=== PATIENT | male | born 1970 | race Caucasian/White ===

== ENCOUNTER 2017-01-20 08:58 | Observation (INO) ==
[2017-01-20] MEDS ORDERED: Aspirin 81 MG TAB.CHEW PO ONE (09:11)
[2017-01-20] MEDS ORDERED: Nitroglycerin 0.4 MG TAB.SUBL SL ONE (09:11)
[2017-01-20] MEDS ORDERED: Ondansetron 4 MG/2 ML VIAL IVP ONE (09:16)
[2017-01-20] MEDS: 0.9 % Sodium Chloride 1,000 ML IVC SCH ×2 (09:20→21:30)
[2017-01-20 09:31] LABS: Basophils % 0.8 %; Eosinophils # 0.1 K/mcL (0.0-0.6); Eosinophils % 1.5 %; Hematocrit 45.9 % (37.5-50.1); Hemoglobin 14.9 g/dL (12.9-16.9); Immature Granulocytes % 0.6 % (0-4); Lymphocytes # 1.3 K/mcL (0.6-4.6); Mean Corpuscular HGB Conc 32.5 g/dL (31.6-35.5); Mean Corpuscular Hemoglobin 26.5 pg (28.0-33.3); Mean Corpuscular Volume 81.5 fL (83.0-100.0); Mean Platelet Volume 8.9 fL (9.4-12.4); Monocytes # 0.2 K/mcL (0.0-1.3); Monocytes % 3.9 %; Neutrophils # 3.6 K/mcL (1.6-8.9); Platelet Count 242 K/mcL (140-400); Red Blood Count 5.63 M/mcL (4.19-5.50); Red Cell Distribution Width 13.5 % (11.5-14.5); Segmented Neutrophils % 68.2 %
[2017-01-20 09:37] LABS: Prothrombin Time 10.8 Seconds (9.4-12.1)
[2017-01-20 09:44] LABS: BUN/Creatinine Ratio 16 (6-26); Blood Urea Nitrogen 14 mg/dL (8-26); Calcium 9.6 mg/dL (8.6-10.8); Carbon Dioxide 25 mEq/L (19-29); Chloride 103 mEq/L (98-109); Glucose 373 mg/dL (70-99); Osmolality,Calculated 302 (280-300); Potassium 4.1 mEq/L (3.5-4.5); Sodium 138 mEq/L (136-145); eGFR For African Americans > 60 (> 60); eGFR For Non-African Americans > 60 (> 60)
--- NOTE | 2017-01-20 10:17 | Emergency Department Note ---
Disposition Clinical Impression: Dizziness Chest pain Qualifiers: Chest pain type: unspecified Qualified Code(s): R07.9 - Chest pain, unspecified Disposition: Admitted As Inpatient Condition: Fair Time of Disposition: 10:53 Chest Pain HPI - General Chief Complaint: ED Chest Pain Stated Complaint: CP, Dizzy, Vomit Time Seen by Provider: 01/20/17 09:11 Source: patient, family Mode of arrival: EMS Limitations: no limitations Vital Signs Reviewed: Yes Nursing Notes Reviewed: Yes - History of Present Illness HPI Narrative: 47-year-old male presents with sudden onset chest pain and dizziness, started at 3 AM awoke him up. He has history of hypertension hyperlipidemia and diabetes. He states he has a "50% blockage" in his heart but he did not have a stent this was found several years ago. Patient has a strong family history of heart attack 40s and 50s. His father and brothers. Patient reports 4 out of 10 chest pain was a 7 out of 10. +N and Vomiting all times. Patient denies focal weakness slurred speech or facial droop. He reports his dizziness is worse when he stands up. He reports dizziness feeling like the roomspinning. He denies fever chills shortness of breath, diarrhea, constipation, weight changes, hematochezia, hematemesi. Pt complaint: chest pain Onset (ago): hour(s) Duration: intermittent Onset: during rest Pain Location: substernal, left chest Severity: mild Severity scale (1-10): 4 Quality: heaviness Pain Radiation: none Worsens with: nothing Associated symptoms: Reports: nausea, vomiting, diaphoresis, other Treatments prior to arrival chest pain: none - Related Data Home Medications Medication Instructions Recorded Confirmed Metformin HCl [Glucophage Xr] 750 mg PO BID 08/19/16 01/20/17 Aspirin Enteric Coated [Aspirin EC] 81 mg PO HS 08/23/16 01/20/17 Allergies Allergy/AdvReac Type Severity Reaction Status Date / Time No Known Allergies Allergy Verified 01/20/17 08:59 Review of Systems: 10 Point ROS was performed and negative except as per below or as documented in HPI. Constitutional: Denies: fever Eyes: Denies: eye pain ENT: Denies: nasal congestion CV: +CP Resp: Denies: cough, hemoptysis GI: Denies: abdominal pain, hematochezia Denies: dysuria, hematuria MSK: Denies: back pain, neck pain, extremity pain Skin: Denies: new rashes Neuro: Denies: paresthesias or weakness All systems ED: reviewed and negative except as stated. Review of Systems: As Per HPI Chest Pain PMH - Past Medical History Medical history: Reports: diabetes, hyperlipidemia, other Psychiatric history: Reports: no psych history - Social History Smoking Status: Never smoker Alcohol use: Reports: none Drug use: Reports: none Physical Exam Constitutional: A 47-year-old male appears pale and diaphoretic vital signs stable. Eyes: PERRLA, sclera anicteric Neck: normal inspection, neck is supple Resp: CTA bilaterally, no resp distress CV: RRR, no m/g/r GI: normal inspection, soft, no guarding or rigidity Back: normal inspection, no tenderness to palpation Neuro: A&O3, CNII-XII grossly intact, HERNANDEZ MSK: no gross deformities, normal ROM UE and LE Skin: on limited exam, skin intact with no rashes or lesions - General Limitations: no limitations General appearance: alert, in no apparent distress Course Course Narrative: 47-year-old male with chest pain risk factors including hyperlipidemia and diabetes, concerning given dizziness and chest pain that started at 3 AM. EKG shows no new ischemic changes subtle T-wave inversion in lead 3 seen on previous EKG. Chest pain workup ordered nitroglycerin trial - Reevaluation(s) Reevaluation #1: Patient's chest pain improved after nitroglycerin is still feeling dizziness, the nurse reported that he had dizziness first and then had chest pain, I went and reevaluated the patient his NIH is 0, his hands exam is negative which may be concerning for central lesion, his chest pain resolved with nitroglycerin ideal do still suspect that his symptoms are consistent with angina, however given findings and concerning symptoms of dizziness we will give imaging of the head to rule out stroke. Patient was admitted to the hospitalist Vital Signs Temperature 0 F L 01/20/17 08:59 Pulse Rate 88 01/20/17 08:59 Respiratory Rate 18 01/20/17 08:59 Blood Pressure 156/96 01/20/17 08:59 O2 Sat by Pulse Oximetry 96 01/20/17 08:59 Temperature 0 F L 01/20/17 08:59 Pulse Rate 82 01/20/17 09:55 Respiratory Rate 15 01/20/17 10:38 Blood Pressure 142/95 01/20/17 10:38 O2 Sat by Pulse Oximetry 96 01/20/17 09:55 Oxygen Delivery Oxygen Delivery Room Air Chest Pain - MDM Narrative Medical decision making narrative: 47[facility] for chest pain rule out, CT of head and neck CTA and chest CTA were obtained dizziness, and rule out pulmonary embolus, these were negative, except for for a left internal carotid 55% stenosis, patient's chest pain-free and only complaining of dizziness at the time of hospitalist admission, Dr. Sánchez accepted the patient for further workup - Differential Diagnosis Likely: atypical chest pain, chest pain - Medical Records Medical records reviewed: Yes I reviewed the patient's medical records. - Lab Data Lab results reviewed: Yes I reviewed the patient's lab results. Result diagrams: 01/20/17 09:23 01/20/17 09:23 Lab Results 01/20/17 01/20/17 01/20/17 Range/Units 09:23 09:23 09:23 WBC 5.3 (4.3-11.1) K/mcL RBC 5.63 H (4.19-5.50) M/mcL Hgb 14.9 (12.9-16.9) g/dL Hct 45.9 (37.5-50.1) % MCV 81.5 L (83.0-100.0) fL MCH 26.5 L (28.0-33.3) pg MCHC 32.5 (31.6-35.5) g/dL RDW 13.5 (11.5-14.5) % Plt Count 242 (140-400) K/mcL MPV 8.9 L (9.4-12.4) fL Immature Gran % 0.6 (0-4) % Seg Neutrophils % 68.2 % Lymphocytes % 25.0 % Monocytes % 3.9 % Eosinophils % 1.5 % Basophils % 0.8 % Neutrophils # 3.6 (1.6-8.9) K/mcL Lymphocytes # 1.3 (0.6-4.6) K/mcL Monocytes # 0.2 (0.0-1.3) K/mcL Eosinophils # 0.1 (0.0-0.6) K/mcL Basophils # 0.0 (0.0-0.2) K/mcL PT 10.8 (9.4-12.1) Seconds INR 1.0 APTT 26.0 (26.0-36.0) Seconds Sodium 138 (136-145) mEq/L Potassium 4.1 (3.5-4.5) mEq/L Chloride 103 (98-109) mEq/L Carbon Dioxide 25 (19-29) mEq/L BUN 14 (8-26) mg/dL Creatinine 0.87 (0.72-1.25) mg/dL Est GFR ( Amer) > 60 (> 60) Est GFR (Non-Af Amer) > 60 (> 60) BUN/Creatinine Ratio 16 (6-26) Glucose 373 H (70-99) mg/dL Calculated Osmolality 302 H (280-300) Calcium 9.6 (8.6-10.8) mg/dL Troponin I (0-0.03) ng/mL 01/20/17 Range/Units 09:23 WBC (4.3-11.1) K/mcL RBC (4.19-5.50) M/mcL Hgb (12.9-16.9) g/dL Hct (37.5-50.1) % MCV (83.0-100.0) fL MCH (28.0-33.3) pg MCHC (31.6-35.5) g/dL RDW (11.5-14.5) % Plt Count (140-400) K/mcL MPV (9.4-12.4) fL Immature Gran % (0-4) % Seg Neutrophils % % Lymphocytes % % Monocytes % % Eosinophils % % Basophils % % Neutrophils # (1.6-8.9) K/mcL Lymphocytes # (0.6-4.6) K/mcL Monocytes # (0.0-1.3) K/mcL Eosinophils # (0.0-0.6) K/mcL Basophils # (0.0-0.2) K/mcL PT (9.4-12.1) Seconds INR APTT (26.0-36.0) Seconds Sodium (136-145) mEq/L Potassium (3.5-4.5) mEq/L Chloride (98-109) mEq/L Carbon Dioxide (19-29) mEq/L BUN (8-26) mg/dL Creatinine (0.72-1.25) mg/dL Est GFR ( Amer) (> 60) Est GFR (Non-Af Amer) (> 60) BUN/Creatinine Ratio (6-26) Glucose (70-99) mg/dL Calculated Osmolality (280-300) Calcium (8.6-10.8) mg/dL Troponin I 0.00 (0-0.03) ng/mL - Radiology Data Radiology results reviewed: Yes I reviewed the patient's radiology results. Chest X-Ray 01/20/17 09:11 IMPRESSION: Negative chest x-ray. No evidence of acute cardiopulmonary disease. D/ / Martin Hernandez MD / Martin Hernandez MD Interpreting Provider: Martin Hernandez MD Chest X-Ray 01/20/17 09:11 IMPRESSION: Negative chest x-ray. No evidence of acute cardiopulmonary disease. D/ / Martin Hernandez MD / Martin Hernandez MD Interpreting Provider: Martin Hernandez MD Head CT 01/20/17 10:52 IMPRESSION: No acute intracranial abnormality. D/ / 01/20/2017 13:08:26 Ant Hudson MD / Elaina Posadas Interpreting Provider: Ant Hudson MD Chest CTA 01/20/17 10:57 IMPRESSION: No evidence of pulmonary embolism or acute pulmonary abnormality. D/ / Francia Whalen MD / Francia Whalen MD Interpreting Provider: Francia Whalen MD Neck CTA 01/20/17 10:57 IMPRESSION: 1. Motion degraded examination. 2. Approximately 55% stenosis in the left carotid bulb and proximal internal carotid artery. 3. No hemodynamically significant stenosis in the remainder of the cervical arterial circulation. D/ : / 01/20/2017 13:19:37 Gloria Stiles MD / sheree Interpreting Provider: Gloria Stiles MD - EKG Data EKG attestation: Yes I reviewed and interpreted this EKG. EKG shows normal: sinus rhythm Rate: normal (Ventricular rate 79 AK 158 QRS 95 QTC 4:15 ST changes include T- wave inversions in lead 3 but no reciprocal changes no ST segment elevations or depressions unchanged from previous EKG in 2012.) Rhythm: NSR Murdock/QRS: normal Heart Score - Score History: Highly Suspicious EKG: Non Specific repolarisation Disturbance Age: 45-65 Risk Factors: Equal/Greater than 3 risk factor or history of atherosclerotic disease Troponin: Less than normal limit HEART Score Total: 6 Attestation Statement - Attestation Attestation: I personally interviewed and examined this patient and my medical decision- making was reviewed with the Resident Physician, Dr. Garcia. I agree with the documented findings, disposition and treatment plan as described except to the extent set forth below. Patient is a 47-year-old white male who presents to the emergency department this morning by EMS with complaints of chest pain. Patient states he awoke suddenly at 3 AM with severe chest pain associated with diaphoresis and shortness of breath, nausea vomiting. Patient also states that he was having lightheadedness with positional changes. Patient with a history of hypertension hyperlipidemia, diabetes on insulin, and a strong family history for coronary artery disease. Patient reports that he has had a heart catheter remotely showing a "50% blockage in one vessel" and no recent stress testing. Patient was uncomfortable in appearance we are called to bedside upon patient's arrival to review initial EKG. Patient was placed on health information technician, continuous pulse ox, IV saline while was established and labs were drawn and sent as well as portal chest x-ray obtained. Patient's EKG did not show any acute ischemic changes. Agree with patient's physical exam findings as documented in the chart. Patient labs show mild anemia, acute on chronic renal insufficiency, and negative troponin. Patient's chest x-ray shows no acute process. Decided with patient's numerous risk factors, strong family history that we would admit the patient for further evaluation of this chest pain. On reevaluation patient was having persistent lightheadedness and dizziness although the chest pain resolved with nitroglycerin. Patient was reevaluated by Dr. Garcia had a complete neurologic exam performed with no acute deficits. Due to patient's complaint of dizziness which is new we will also obtain CTA imaging of the head and neck and chest. This was discussed with the hospitalist who accepted the patient for admission and agrees to follow-up on pending imaging results. We did review the films ourselves prior to the patient being physically transferred from the ED and CTA chest was within normal limits patient remained hemodynamically stable at time of discharge to the floor.
[2017-01-20 10:38] LABS: VBG HCO3 26.9 mEq/L (21-27); VBG PH 7.33 pH Units (7.32-7.42)
[2017-01-20] MEDS ORDERED: *HR* Dextrose 50 % in Water (Syg) 50 ML SYRINGE IVP PRN (12:34)
[2017-01-20] MEDS ORDERED: Dextrose Gel 15 GM PO PRN ×2 (12:34)
[2017-01-20] MEDS ORDERED: D5% in Water 1,000 ML IVC PRN (12:34)
[2017-01-20] MEDS: Insulin LISPRO 300 UNITS/3 ML VIAL SQ SCH ×2 (13:03→16:04)
[2017-01-20] MEDS ORDERED: Acetaminophen 325 MG TABLET PO PRN (13:46)
[2017-01-20] MEDS ORDERED: Nitroglycerin 0.4 MG TAB.SUBL SL PRN (14:16)
[2017-01-20] MEDS ORDERED: Naloxone 0.4 MG/ML INJ IVP PRN (15:28)
[2017-01-20] MEDS ORDERED: *HR* Morphine 2 MG/ML SYRINGE IVP PRN (15:28)
--- NOTE | 2017-01-20 15:38 | Internal Med History&Physical ---
<Cheko Pennington - Last Filed: 01/20/17 15:53> Date of Encounter: 01/20/17 Time of Encounter: 15:35 Assessment and Plan (1) Chest pain Current visit: Yes Status: Acute Patient presents with typical chest pain concerning for ACS EKG, trop, CXR, CTA negative for acute abnormalities Will trend troponin x2 and obtain lipid panel Given his positive family history, risk factors, KAREN Score of 4 will consult cardiology for possible cardiac cath in the AM Will make NPO at midnight in preparation for possible procedure Start on ASA, BB, Lipitor Qualifiers: Chest pain type: unspecified Qualified Code(s): R07.9 - Chest pain, unspecified (2) Dizziness Current visit: Yes Status: Acute Unclear etiology at this time, but may be cardiac vs. primary neurologic Head CT was negative upon admission If cardiac cath is negative, he may benefit from neurological consult (3) Non-insulin dependent type 2 diabetes mellitus Current visit: Yes Status: Chronic Last A1c was 10.6% in October, will recheck in AM Glucose was elevated above 300 upon admission Will start on low dose SSI ACHS accuchecks (4) Hypertension Current visit: Yes Status: Chronic Patient does not seem to be taking any hypertensives at home Vital signs stable upon admission Will start on Metoprolol and add Hydralazine PRN if SBP > 170 Qualifiers: Hypertension type: essential hypertension Qualified Code(s): I10 - Essential (primary) hypertension (5) HLD (hyperlipidemia) Current visit: Yes Status: Chronic Obtain lipid panel in the AM Start on high intensity statin with Lipitor 80 mg Qualifiers: Qualified Code(s): E78.5 - Hyperlipidemia, unspecified (6) DVT prophylaxis Current visit: Yes Status: Acute Heparin 5000 units BID Internal Medicine - H&P: HPI Chief complaint: chest pain Admitted From: Home Plans for Post Hospital Care: Home History of present illness: Mr. Ortega is a 47 year old male who presents to the ED with chest pain began at 3 am and woke him up from sleep. Patient states once he woke up he went back to sleep then woke up to urinate. Once the patient was in the bathroom he states he felt dizziness, started sweating and began to vomit. Patient describes the pain as sudden and crushing like an elephant sitting on his chest. States the pain radiated to his shoulder and is a 10/10 in severity. Patient did not try anything to alleviate the pain before coming to the ED. Patient states he had nausea, vomiting, dizziness, sweating but denies shortness of breath. He did have an episode of chest pain roughly 4 years ago but described that as sharp. He had a cath done at that time which showed 50% stenosis, and no intervention was done. Patients drove him to the ED since he was not equipped to drive. Past Med Surg Social Fam HX - Past Medical History Medical history: diabetes, hyperlipidemia, other Psychiatric history: no psych history - Past Surgical History Surgical History: cancer surgery (removed tumor ), vascular surgery (varicose veins) - Social History Smoking Status: Never smoker Smokeless Tobacco Status: No Alcohol use: none Drug use: none - Family History Mother Hx Family Cardiac Disorders: Yes Hx Family Endocrine Disorder: Yes Father Hx Family Cardiac Disorders: Yes Hx Family Endocrine Disorder: Yes Internal Medicine - H&P: Meds Metformin HCl [Glucophage Xr] 750 mg PO BID 08/19/16 [History] Aspirin Enteric Coated [Aspirin EC] 81 mg PO HS 08/23/16 [History] Allergies No Known Allergies Allergy (Verified 01/20/17 08:59) All Systems PM: A 10-system review of systems was performed and is negative for pertinent findings except as documented above in the HPI. - Constitutional Constitutional: no chills, no fever(s), no night sweats - EENT Eyes: blurry vision, no change in vision, no discharge, no pain, no photophobia Ears: no ear discharge, no ear pain, no tinnitus Nose, mouth and throat: no dysphagia, no nasal discharge, no neck pain, no sore throat - Cardiovascular Cardiovascular ROS IM: chest pain, no diaphoresis, no dyspnea, no dyspnea on exertion, no lightheadedness, no palpitations, no syncope - Respiratory Respiratory: no cough, no dyspnea, no wheezing, no excessive phlegm production - Gastrointestinal Gastrointestinal: nausea, vomiting, no abdominal pain, no diarrhea, no hematemesis, no hematochezia, no melena - Musculoskeletal Musculoskeletal ROS IM: no numbness, no tingling - Integumentary Integumentary IM: no rash, no unusual bruising - Neurological Neurological ROS: headache(s), no confusion, no convulsions, no focal weakness, no numbness, no tingling, no tremor(s) - Hematologic/Lymphatic Hematologic/Lymphatic: no easy bruising - Constitutional Vitals: Temp Pulse Resp BP Pulse Ox 0 F L 82 15 142/95 96 01/20/17 08:59 01/20/17 09:55 01/20/17 10:38 01/20/17 10:38 01/20/17 09:55 General appearance: Present: cooperative, pleasant, no acute distress, answers questions appropriately - Head Head exam: Present: atraumatic, normocephalic - Eye Eye exam: Present: PERRL, conjuntiva pink, sclera anicteric - Neck Neck exam general surgery: Present: supple, trachea midline. Absent: lymphadenopathy - Respiratory Respiratory exam: Present: CTAB. Absent: accessory muscle use, rales, rhonchi, wheezes - Cardiovascular Cardiovascular exam: Present: RRR, +S1, +S2. Absent: diastolic murmur, gallop, rubs, systolic murmur - GI/Abdominal GI/Abdominal exam: Present: normal bowel sounds, soft, no peritoneal signs. Absent: distended, tenderness - Extremities Exam Extremities exam: Present: warm, radial pulses palpable and symetrical. Absent : calf tenderness, cyanotic, pedal edema - Neurological Exam Neurological exam: Present: alert, CN II-XII intact, oriented X3, no focal deficits. Absent: pronater drift, facial droop, speech deficit - Skin Skin exam: Present: dry, intact Internal Med - H&P Results - Labs CBC & Chem 7: 01/20/17 09:23 01/20/17 09:23 - ABG Interpretation ABG results: 01/20/17 10:30 VBG pH 7.33 VBG pCO2 51 VBG pO2 98 H VBG HCO3 26.9 - Impressions ITS Impressions Head CT 01/20/17 10:52 IMPRESSION: No acute intracranial abnormality. D/ / 01/20/2017 13:08:26 Ant Hudson MD / Elaina Posadas Interpreting Provider: Ant Hudson MD Chest CTA 01/20/17 10:57 IMPRESSION: No evidence of pulmonary embolism or acute pulmonary abnormality. D/ / Francia Whalen MD / Francia Whalen MD Interpreting Provider: Francia Whalen MD Neck CTA 01/20/17 10:57 IMPRESSION: 1. Motion degraded examination. 2. Approximately 55% stenosis in the left carotid bulb and proximal internal carotid artery. 3. No hemodynamically significant stenosis in the remainder of the cervical arterial circulation. D/ / 01/20/2017 13:19:37 Gloria Stiles MD / sheree Interpreting Provider: Gloria Stiles MD <Kwame Sun - Last Filed: 01/20/17 19:38> Date of Encounter: 01/20/17 Assessment and Plan (1) Chest pain Current visit: Yes Status: Acute Qualifiers: Chest pain type: chest pain due to myocardial ischemia Ischemic chest pain type: unstable angina pectoris Qualified Code(s): I20.0 - Unstable angina (2) Dizziness Current visit: Yes Status: Acute (3) Hypertension Current visit: Yes Status: Chronic Qualifiers: Hypertension type: essential hypertension Qualified Code(s): I10 - Essential (primary) hypertension (4) HLD (hyperlipidemia) Current visit: Yes Status: Chronic Qualifiers: Qualified Code(s): E78.5 - Hyperlipidemia, unspecified (5) Non-insulin dependent type 2 diabetes mellitus Current visit: Yes Status: Chronic Internal Medicine - H&P: HPI History of present illness: Mr. Ortega is a 47 year old male All Systems PM: A 10-system review of systems was performed and is negative for pertinent findings except as documented above in the HPI. - Constitutional Vitals: Temp Pulse Resp BP Pulse Ox 97.6 F 102 17 126/84 94 01/20/17 15:57 01/20/17 15:57 01/20/17 15:57 01/20/17 15:57 01/20/17 15:57 Internal Med - H&P Results - Labs CBC & Chem 7: 01/20/17 09:23 01/20/17 09:23 Labs: Cardiac Enzymes 01/20/17 Range/Units 17:41 Troponin I 0.00 (0-0.03) ng/mL - ABG Interpretation ABG results: 01/20/17 10:30 VBG pH 7.33 VBG pCO2 51 VBG pO2 98 H VBG HCO3 26.9 - Impressions ITS Impressions Head CT 01/20/17 10:52 IMPRESSION: No acute intracranial abnormality. D/ / 01/20/2017 13:08:26 Ant Hudson MD / Elaina Posadas Interpreting Provider: Ant Hudson MD Chest CTA 01/20/17 10:57 IMPRESSION: No evidence of pulmonary embolism or acute pulmonary abnormality. D/ / Francia Whalen MD / Francia Whalen MD Interpreting Provider: Francia Whalen MD Neck CTA 01/20/17 10:57 IMPRESSION: 1. Motion degraded examination. 2. Approximately 55% stenosis in the left carotid bulb and proximal internal carotid artery. 3. No hemodynamically significant stenosis in the remainder of the cervical arterial circulation. D/ / 01/20/2017 13:19:37 Gloria Stiles MD / sheree Interpreting Provider: Gloria Stiles MD - Attending Attestation I examined this patient and my medical decision-making was reviewed with the Resident Physician on 01/20/17. I agree with the documented findings, disposition and treatment plan as described except to the extent set forth below. 47 y/o male with hx of CAD, HLD and DM presented to ED with chest pain. Symptoms awoke him at 3 AM and he was very dizzy as well. Continues to have some dizziness. Still with some L chest discomfort intermittently. Pt has significant coronary risk factors. Exam Alert. Comfortable Mucus membranes moist No bruits Heart reg and no murmur Lungs clear Abd soft and nontender No edema EKG - no acute change I/P 1. Chest pain - high risk for coronary event. Card eval 2. Dizziness - may need neuro eval. Further diagnoses and plan as above.
[2017-01-20] MEDS ORDERED: *HR* Heparin 5,000 UNIT/ML VIAL ONE (17:31)
[2017-01-20] MEDS: *HR* Heparin 5,000 UNIT/ML VIAL SQ SCH (17:33)
--- NOTE | 2017-01-20 20:52 | Electrocardiograph Report ---
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
--- NOTE | 2017-01-20 20:53 | Electrocardiograph Report ---
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
[2017-01-20 20:57] LABS: Bilirubin,Urine Negative (Negative); Blood,Urine Trace (Negative); Clarity,Urine Cloudy (Clear); Color,Urine Yellow (Yellow); Glucose,Urine (UA) >=1000 mg/dL (Normal); Ketones,Urine Trace mg/dL (Negative); Leukocyte Esterase,Urine Small (Negative); Nitrite,Urine Negative (Negative); Protein,Urine 30 mg/dL (Neg-Trace); Specific Gravity,Urine > 1.030 (1.010-1.025); Urobilinogen,Urine Normal (Normal)
[2017-01-20 21:00] LABS: Bacteria,Urine Many per hpf (None-Few); Hyaline Casts,Urine None Seen per lpf (None-Few); Squamous Epithelial Cell,Urine Few per lpf (None-Few); WBC,Urine TNTC per hpf (0-3)
[2017-01-20] MEDS ORDERED: Insulin LISPRO 300 UNITS/3 ML VIAL SQ SCH (21:00)
[2017-01-21 05:34] LABS: Basophils % 0.7 %; Eosinophils # 0.1 K/mcL (0.0-0.6); Eosinophils % 1.8 %; Hematocrit 41.2 % (37.5-50.1); Immature Granulocytes % 0.3 % (0-4); Lymphocytes # 2.1 K/mcL (0.6-4.6); Lymphocytes % 34.6 %; Mean Corpuscular Hemoglobin 26.7 pg (28.0-33.3); Mean Corpuscular Volume 83.2 fL (83.0-100.0); Mean Platelet Volume 8.9 fL (9.4-12.4); Monocytes # 0.3 K/mcL (0.0-1.3); Monocytes % 4.1 %; Neutrophils # 3.6 K/mcL (1.6-8.9); Platelet Count 243 K/mcL (140-400); Red Blood Count 4.95 M/mcL (4.19-5.50); Red Cell Distribution Width 13.7 % (11.5-14.5); Segmented Neutrophils % 58.5 %
[2017-01-21 05:43] LABS: Hemoglobin 13.2 g/dL (12.9-16.9)
[2017-01-21 05:48] LABS: Hemoglobin A1C 10.1 %
[2017-01-21] MEDS: *HR* Heparin 5,000 UNIT/ML VIAL SQ SCH (05:57)
[2017-01-21 05:59] LABS: BUN/Creatinine Ratio 17 (6-26); Blood Urea Nitrogen 15 mg/dL (8-26); Calcium 8.7 mg/dL (8.6-10.8); Carbon Dioxide 26 mEq/L (19-29); Chloride 105 mEq/L (98-109); Chol/HDL Ratio 6.6 (0-4.9); Cholesterol 210 mg/dL (< 200); Glucose 257 mg/dL (70-99); HDL Cholesterol 32 mg/dL (40-59); LDL Cholesterol,Calculated 130 mg/dL (0-99); Osmolality,Calculated 294 (280-300); Potassium 3.8 mEq/L (3.5-4.5); Sodium 137 mEq/L (136-145); Triglycerides 241 mg/dL (< 150); eGFR For African Americans > 60 (> 60); eGFR For Non-African Americans > 60 (> 60)
[2017-01-21] MEDS: 0.9 % Sodium Chloride 1,000 ML IVC SCH (07:57)
[2017-01-21] MEDS: Insulin LISPRO 300 UNITS/3 ML VIAL SQ SCH (07:58)
[2017-01-21] MEDS ORDERED: Aspirin Enteric Coated 81 MG Tablet PO SCH (09:00)
[2017-01-21] MEDS ORDERED: Pantoprazole 40 MG VIAL IVP SCH (09:00)
[2017-01-21] MEDS ORDERED: Aspirin 81 MG TAB.CHEW PO SCH (09:00)
--- NOTE | 2017-01-21 09:02 | Internal Med Progress Note ---
<Juan LuisEdil mello - Last Filed: 01/21/17 13:10> Date of Encounter: 01/21/17 Time of Encounter: 08:59 - Assessment and plan (1) Chest pain Status: Acute Assessment and plan: typical CP EKG, CXR, CTA negative Troponin x3 negative lipid panel elevated Fernando score: 4 prior cath about 4 years ago showed 50% stenosis with no intervention. Plan: appreciate cardiology recs NPO for possible cath or stress test today continue ASA, Statin, BB Qualifiers: Chest pain type: unspecified Qualified Code(s): R07.9 - Chest pain, unspecified (2) Dizziness Status: Acute Assessment and plan: unclear etiology at this time consider cardiac origin, neurologic origin, dehydration CT head negative upon admission (3) Non-insulin dependent type 2 diabetes mellitus Status: Chronic Assessment and plan: Blood sugars high hold metformin medium dose sliding scale insulin. A1C 10.1, same as in October (4) Hypertension Status: Chronic Assessment and plan: no antihypertensive meds at home. continue metoprolol continue Hydralazine PRN blood pressures well controlled at this time. Qualifiers: Hypertension type: essential hypertension Qualified Code(s): I10 - Essential (primary) hypertension (5) HLD (hyperlipidemia) Status: Chronic Assessment and plan: Lipid panel noted to be elevated: Tg 241 cholesterol 210 LDL 130 HDL 32 continue high intensity statin Qualifiers: Hyperlipidemia type: unspecified Qualified Code(s): E78.5 - Hyperlipidemia , unspecified (6) DVT prophylaxis Status: Acute Assessment and plan: heparin SQ - Subjective Interval history: 47 year old paitent evaluated at bedside. He had no acute events overnight and no further episodes of chest pain. patient denies nausea, vomiting, diarrhea, fever, chills, chest pain, and shortness of breath. he denies any further problems today. - Constitutional Vitals: Temp Pulse Resp BP Pulse Ox 97.7 F 80 15 125/81 97 01/21/17 06:50 01/21/17 06:50 01/21/17 06:50 01/21/17 06:50 01/21/17 06:50 General appearance: Present: cooperative, A&O X 3, pleasant, no acute distress, answers questions appropriately - Head Head exam: Present: atraumatic, normocephalic - Neck Neck exam general surgery: Present: supple, trachea midline - Respiratory Respiratory exam: Present: CTAB - Cardiovascular Cardiovascular exam: Present: RRR, +S1, +S2 - GI/Abdominal GI/Abdominal exam: Present: normal bowel sounds, soft. Absent: distended, tenderness - Extremities Exam Extremities exam: Present: radial pulses palpable and symmetrical. Absent: cyanotic, pedal edema - Psychiatric Psychiatric exam: Present: normal affect, normal mood - Skin Skin exam: Present: intact Internal Medicine: Result - Labs CBC & Chem 7: 01/21/17 05:05 01/21/17 05:05 Labs: Short CBC 01/21/17 Range/Units 05:05 WBC 6.2 (4.3-11.1) K/mcL Hgb 13.2 D (12.9-16.9) g/dL Hct 41.2 (37.5-50.1) % Plt Count 243 (140-400) K/mcL Neutrophils # 3.6 (1.6-8.9) K/mcL BMP 01/21/17 05:05 Sodium 137 Potassium 3.8 Chloride 105 Carbon Dioxide 26 BUN 15 Creatinine 0.86 Glucose 257 H Calcium 8.7 Cardiac Enzymes 01/20/17 01/20/17 Range/Units 17:41 23:44 Troponin I 0.00 0.00 (0-0.03) ng/mL Urine 01/20/17 Range/Units 20:40 Urine Color Yellow (Yellow) Urine Clarity Cloudy A (Clear) Urine pH 6.0 (5.0-8.0) pH Units Ur Specific [place] > 1.030 H (1.010-1.025) Urine Protein 30 H (Neg-Trace) mg/dL Urine Glucose (UA) >=1000 H (Normal) mg/dL - ABG Interpretation ABG results: PT/INR, D-dimer PT 10.8 Seconds (9.4-12.1) 01/20/17 09:23 - Impressions Impressions Head CT 01/20/17 10:52 IMPRESSION: No acute intracranial abnormality. D/ / 01/20/2017 13:08:26 Ant Hudson MD / Elaina Posadas Interpreting Provider: Ant Hudson MD Chest CTA 01/20/17 10:57 IMPRESSION: No evidence of pulmonary embolism or acute pulmonary abnormality. D/ / Francia Whalen MD / Francia Whalen MD Interpreting Provider: Francia Whalen MD Neck CTA 01/20/17 10:57 IMPRESSION: 1. Motion degraded examination. 2. Approximately 55% stenosis in the left carotid bulb and proximal internal carotid artery. 3. No hemodynamically significant stenosis in the remainder of the cervical arterial circulation. D/ / 01/20/2017 13:19:37 Gloria Stiles MD / sheree Interpreting Provider: Gloria Stiles MD Consult Discharge Plan - Plan Additional Instructions: Please follow up with environmental officer in 2-3 weeks Please establish with a PCP by calling [phone] and schedule a hospital f/u within 1 week Referrals: Sally Ortega CNP [Primary Care Provider] - 01/24/17 3:00 pm (Please follow up as schedule..) Maria De Jesus Bailey DO [Partnered Physician] - Prescriptions: Nitroglycerin 0.4 mg SL Q5MIN PRN #60 PRN Reason: Chest Pain Insulin Glargine [Lantus] 10 unit SQ BID #100 mls Lancets/Blood Glucose Strips [Fora [id number] Strp-Lnct] 1 each MC DAILY # 30 combo..pkg Metformin HCl [Glucophage] 1,000 mg PO BID #60 tablet Metoprolol [Lopressor] 25 mg PO BID #60 tab [place], Insulin Disp., Safety [Healthy Accents Unifine Pentip] 1 each MC DAILY #60 dis.needle <Vladislav Soria T - Last Filed: 01/21/17 16:21> Date of Encounter: 01/21/17 - Constitutional Vitals: Temp Pulse Resp BP Pulse Ox 98 F 84 14 150/92 97 01/21/17 14:05 01/21/17 14:05 01/21/17 14:05 01/21/17 14:05 01/21/17 14:05 Internal Medicine: Result - Labs CBC & Chem 7: 01/21/17 05:05 01/21/17 05:05 Labs: Short CBC 01/21/17 Range/Units 05:05 WBC 6.2 (4.3-11.1) K/mcL Hgb 13.2 D (12.9-16.9) g/dL Hct 41.2 (37.5-50.1) % Plt Count 243 (140-400) K/mcL Neutrophils # 3.6 (1.6-8.9) K/mcL BMP 01/21/17 05:05 Sodium 137 Potassium 3.8 Chloride 105 Carbon Dioxide 26 BUN 15 Creatinine 0.86 Glucose 257 H Calcium 8.7 Cardiac Enzymes 01/20/17 01/20/17 Range/Units 17:41 23:44 Troponin I 0.00 0.00 (0-0.03) ng/mL Urine 01/20/17 Range/Units 20:40 Urine Color Yellow (Yellow) Urine Clarity Cloudy A (Clear) Urine pH 6.0 (5.0-8.0) pH Units Ur Specific [place] > 1.030 H (1.010-1.025) Urine Protein 30 H (Neg-Trace) mg/dL Urine Glucose (UA) >=1000 H (Normal) mg/dL - ABG Interpretation ABG results: PT/INR, D-dimer PT 10.8 Seconds (9.4-12.1) 01/20/17 09:23 - Impressions Impressions Neck CTA 01/20/17 10:57 IMPRESSION: 1. Motion degraded examination. 2. Approximately 55% stenosis in the left carotid bulb and proximal internal carotid artery. 3. No hemodynamically significant stenosis in the remainder of the cervical arterial circulation. D/ : / 01/20/2017 13:19:37 Gloria Stiles MD / sheree Interpreting Provider: Gloria Stiles MD - Attending Attestation I examined this patient and my medical decision-making was reviewed with the Resident Physician on 01/21/17. I agree with the documented findings, disposition and treatment plan as described except to the extent set forth below. See D/C Summary of same day
[2017-01-21] MEDS ORDERED: Insulin LISPRO 300 UNITS/3 ML VIAL SQ SCH ×2 (09:04)
--- NOTE | 2017-01-21 09:35 | Cardiology Consult Note ---
<Chidi Day - Last Filed: 01/21/17 09:27> Date of Encounter: 01/21/17 Time of Encounter: 09:27 Assessment and Plan (1) Chest pain Status: Acute Troponin negative x 3. EKG with no acute changes. Known history of moderate non-obstuctive CAD seen on [facility] in 2013. Recommend proceeding with stress test and TTE. Currently pain free. Aggressive risk factor modification. Further recommendations to follow. Qualifiers: Chest pain type: chest pain due to myocardial ischemia Ischemic chest pain type: unstable angina pectoris Qualified Code(s): I20.0 - Unstable angina (2) Dizziness Status: Acute Orthostatic vitals are negative. 24 hour telemetry review shows AVg HR 87 bpm. No concerning bradycardia or pauses seen. No VT. Neck CTA shows moderate carotid artery disease, likely not the cause of dizziness. Continue to monitor. Check TTE. (3) CAD (coronary artery disease) Status: Acute H/o of moderate non-obstructive CAD on [facility] in 2013 at [facility]: 40-50% stenosis in the mLAD, 60% stenosis dLAD, 50% stenosis mCx artery, 30% stenosis 1st OM, 40-50 % stenosis mRCA. EF 63%. Asa, statin, and bb recommended. Poor cardiology f/u since that time. Will schedule out-pt f/u. Aggressive risk factor modification. Qualifiers: Coronary Disease-Associated Artery/Lesion type: craig artery [place] vs. transplanted heart: craig heart Associated angina: angina presence unspecified Qualified Code(s): I25.10 - Atherosclerotic heart disease of craig coronary artery without angina pectoris Discussion w patient/family: The assessment and plan as outlined above was discussed with the patient and/or family members who expressed understanding and agreement. All questions were answered. Thank you for involving us in the care of your patient. Please call with any questions. History of Present Illness Consult date: 01/21/17 Requesting physician: Kwame Sun Consult reason: Chest pain Chief complaint: Chest discomfort. dizziness History of present illness: Mr. Ortega is a 47 year old male with a history of non-obstructive CAD, DM type II, and HLD who presented after waking up with chest heaviness the night before last. He states, "felt like there was an elephant sitting on my chest." He states when he stood up he immediately vomited. He walked to the bathroom and felt very dizzy. C/o sweating profusely. He presented to the ER and was given two SL NTG with relief of his chest discomfort. No chest pain since that time. Troponin found to be negative x 3. EKG showed SR with no concerning changes. Cardiology consulted for further evaluation. He reports LHC five years ago at [facility] that showed a 50% stenosis. No intervention completed at that time. He does not follow with cardiology. Past Med Surg Social Fam HX - Past Medical History Medical history: coronary artery disease, diabetes, hyperlipidemia, other Psychiatric history: no psych history - Past Surgical History Surgical History: cancer surgery (removed tumor ), vascular surgery (varicose veins) - Social History Smoking Status: Never smoker Smokeless Tobacco Status: No Alcohol use: none Drug use: none - Family History Mother Living Status: (Secondary to ID, 48 yr old) Hx Family Cardiac Disorders: Yes Hx Family Endocrine Disorder: Yes Father Hx Family Cardiac Disorders: Yes (ID at age 48) Hx Family Endocrine Disorder: Yes Medications and Allergies Aspirin Enteric Coated [Aspirin EC] 81 mg PO HS 08/23/16 [History] Atorvastatin [Lipitor] 40 mg PO HS 01/21/17 [History] Insulin Glargine [Lantus] 10 unit SQ BID #100 mls 01/21/17 [Rx] Lancets/Blood Glucose Strips [Fora [id number] [facility]] 1 each MC DAILY # 30 combo..pkg 01/21/17 [Rx] Metformin HCl [Glucophage] 1,000 mg PO BID #60 tablet 01/21/17 [Rx] Metoprolol [Lopressor] 25 mg PO BID #60 tab 01/21/17 [Rx] [place], Insulin Disp., Safety [Healthy Accents Unifine Pentip] 1 each MC DAILY #60 dis.needle 01/21/17 [Rx] Nitroglycerin 0.4 mg SL Q5MIN PRN #60 01/21/17 [Rx] Allergies No Known Allergies Allergy (Verified 01/20/17 08:59) All Systems Review: A 10-system review of systems was performed and is negative for pertinent findings except as documented above in the HPI. Physical Examination Vital Signs, Last 4 Hours Temp Pulse Resp BP Pulse Ox 01/21/17 06:50 97.7 F 80 15 125/81 97 General: Conversant, No Apparent Distress HEENT: Atraumatic, Normocephaly, Mucus Membranes Moist Neck: No JVD, Normal carotid pulses Cardiac: Reg Rate and Rhythm, Normal S1 and S2, No Murmur Lungs: Normal Breath Sounds, No Wheeze, Rales, Rhonchi Neuro: Alert and responsive, No focal deficits noted Abdomen: Soft, Non-Tender Skin: No rashes noted on visualized skin Musculoskeletal: No Chest Wall Tenderness Extremities: No Clubbing, No Cyanosis, No Edema, Normal Pulses Results 01/21/17 05:05 01/21/17 05:05 Lab Results 01/20/17 01/20/17 01/21/17 17:41 23:44 05:05 WBC 6.2 Hgb 13.2 D Hct 41.2 Plt Count 243 Sodium Potassium Chloride Carbon Dioxide BUN Creatinine Glucose Calcium Troponin I 0.00 0.00 01/21/17 05:05 WBC Hgb Hct Plt Count Sodium 137 Potassium 3.8 Chloride 105 Carbon Dioxide 26 BUN 15 Creatinine 0.86 Glucose 257 H Calcium 8.7 Troponin I Chest X-Ray 01/20/17 09:11 IMPRESSION: Negative chest x-ray. No evidence of acute cardiopulmonary disease. D/ / Martin Hernandez MD / Martin Hernandez MD Interpreting Provider: Martin Hernandez MD Head CT 01/20/17 10:52 IMPRESSION: No acute intracranial abnormality. D/ / 01/20/2017 13:08:26 Ant Hudson MD / Elaina Posadas Interpreting Provider: Ant Hudson MD Chest CTA 01/20/17 10:57 IMPRESSION: No evidence of pulmonary embolism or acute pulmonary abnormality. D/ / Francia Whalen MD / Francia Whalen MD Interpreting Provider: Francia Whalen MD Neck CTA 01/20/17 10:57 IMPRESSION: 1. Motion degraded examination. 2. Approximately 55% stenosis in the left carotid bulb and proximal internal carotid artery. 3. No hemodynamically significant stenosis in the remainder of the cervical arterial circulation. D/ / 01/20/2017 13:19:37 Gloria Stiles MD / sheree Interpreting Provider: Gloria Stiles MD - Imaging and Cardiology Echo: pending - EKG Interpretation EKG results cardiology: personally reviewed (NSR) Consult Discharge Plan - Plan Additional Instructions: Please follow up with animal care service worker in 2-3 weeks Please establish with a PCP by calling [phone] and schedule a hospital f/u within 1 week Referrals: Sally Ortega, [employer] SUPERINTENDENT [Primary Care Provider] - 01/24/17 3:00 pm (Please follow up as schedule..) Maria De Jesus Bailey DO [Partnered Physician] - Prescriptions: Nitroglycerin 0.4 mg SL Q5MIN PRN #60 PRN Reason: Chest Pain Insulin Glargine [Lantus] 10 unit SQ BID #100 mls Lancets/Blood Glucose Strips [Fora [id number] Strp-Lnct] 1 each MC DAILY # 30 combo..pkg Metformin HCl [Glucophage] 1,000 mg PO BID #60 tablet Metoprolol [Lopressor] 25 mg PO BID #60 tab [place], Insulin Disp., Safety [Healthy Accents Unifine Pentip] 1 each MC DAILY #60 dis.needle <Maria De Jesus Bailey - Last Filed: 01/21/17 16:53> Date of Encounter: 01/21/17 Assessment and Plan Discussion w patient/family: The assessment and plan as outlined above was discussed with the patient and/or family members who expressed understanding and agreement. All questions were answered. Thank you for involving us in the care of your patient. Please call with any questions. History of Present Illness History of present illness: Mr. Ortega is a 47 year old male All Systems Review: A 10-system review of systems was performed and is negative for pertinent findings except as documented above in the HPI. Physical Examination Vital Signs, Last 4 Hours Temp Pulse Resp BP Pulse Ox 01/21/17 14:05 98 F 84 14 150/92 97 Results 01/21/17 05:05 01/21/17 05:05 Lab Results 01/20/17 01/20/17 01/21/17 17:41 23:44 05:05 WBC 6.2 Hgb 13.2 D Hct 41.2 Plt Count 243 Sodium Potassium Chloride Carbon Dioxide BUN Creatinine Glucose Calcium Troponin I 0.00 0.00 01/21/17 05:05 WBC Hgb Hct Plt Count Sodium 137 Potassium 3.8 Chloride 105 Carbon Dioxide 26 BUN 15 Creatinine 0.86 Glucose 257 H Calcium 8.7 Troponin I - Attending Attestation I examined this patient and my medical decision-making was reviewed with the Resident Physician. I agree with the documented findings, disposition and treatment plan. Mr. Ortega presents with atypical chest pain, had negative troponins and no ECG changes. He's also undergone stress testing that was negative for ischemia and had an echo that was unremarkable. He's been chest pain free. No further testing is warranted from a cardiac perspective. We discussed healthy lifestyle habits and I encouraged a plant based diet. He will remain on aspirin and statin. We will sign off. Recommend outpatient follow up.
[2017-01-21] MEDS ORDERED: Acetaminophen 325 MG TABLET PO PRN (11:16)
[2017-01-21] MEDS ORDERED: Regadenoson 0.4 MG/5 ML SYRINGE IVP ONE (12:09)
--- NOTE | 2017-01-21 12:34 | Electrocardiograph Report ---
[place] [address] Test Date: 2017-01-20 Pat Name: Stefano Ortega Department: 112 Room: 2A25 Gender: Testboard Operator: [facility] : 1970 Requested By: Win Garcia Order Number: [id number] Reading MD: Suzanna Morin Measurements Intervals [place] Rate: 96 P: 45 MI: 163 QRS: -24 QRSD: 98 T: 5 QT: 354 QTc: 408 Interpretive Statements SINUS RHYTHM MINIMAL VOLTAGE CRITERIA FOR LVH, CONSIDER NORMAL VARIANT INFERIOR MYOCARDIAL INFARCTION, PROBABLY OLD Electronically Signed On 01-21-2017 12:33:12 EDT by Suzanna Morin
--- NOTE | 2017-01-21 13:54 | Nuclear Medicine Stress Report ---
Regadenoson Nuclear Stress Name: Stefano Ortega Date of Study: 01/21/2017 Date: 1970 Ht: 71.0 in Medical Record#: [id number] Age: 47 Wt: 210.0 lb Gender: Male Order #: [id number] Location: [facility] Room: [facility] Supervising Provider: Polo Pham CNP Reading Physician: Alex Pa MD, [facility] Ordering Physician: Kwame Sun DO Primary Care Physician: Sally Ortega CNP Stress Technologist: Allen Garcia CRT Edi Architect: Mani Garza Indications: Chest Pain Impression: Gated LVEF = 58%. Perfusion imaging was negative for ischemia or infarct. History: Diabetes Hypercholesteremia Stress Test Summary: Stress Test Type: Pharmacologic Regadenoson 0.4mg/5ml given IV Baseline Information: Initial Heart Rate: 88 Blood Pressure: 122/74 Stress Information: Test Terminated Due to (primary): As per protocol Maximum Blood Pressure: 124/84 Maximum Heart Rate: 109 Percent Maximum Heart Rate Achieved: 62 Double Product: [id number] Symptoms: No chest symptoms Nuclear Summary: SPECT myocardial perfusion imaging using Tc99m Sestamibi given intravenously was performed at rest and following cardiac stress testing. The resting images were obtained following initial dose of 11 mCi. Following stress an additional dose of 31.3 mCi was given at peak exercise or 30 seconds post regadenoson infusion. Findings: Stress Note * Resting ECG demonstrated sinus rhythm, poor r-wave progression. * No baseline arrhythmias were noted. * Patient had no chest pain during stress. * No arrhythmias were noted during stress. * No significant ECG changes with regadenoson. Hemodynamic responses * Normal hemodynamic responses to pharmacologic stress. Study Quality * Study quality is average. Gated EF % * Gated LVEF = 58%. Left Ventricle * The left ventricle is not dilated. * Normal Segmental Perfusion in rest. * Normal segmental perfusion in stress. TID * No evidence of transient ischemic dilatation. Updated by Alex Pa MD, [facility] on 01/21/2017 1:47:10 PM electronically signed on 01/21/2017 1:47:32 PM with status of Final
--- NOTE | 2017-01-21 14:33 | Event Note ---
Date of Encounter: 01/21/17 Time of Encounter: 14:30 - Cardiology Event Note Stress test was negative for ischemia or infarct. TTE shows preserved LV function. No further cardiac work-up indicated. Patient will be evaluated by Dr. Bailey prior to being cleared for discharge. Out-pt f/u will be made by [facility] in 2-3 weeks.
--- NOTE | 2017-01-21 15:06 | Discharge Summary ---
<Vladislav Soria T - Last Filed: 01/21/17 16:55> Date of Encounter: 01/21/17 - Discharge Medications Prescriptions: Nitroglycerin 0.4 mg SL Q5MIN PRN #60 PRN Reason: Chest Pain Insulin Glargine [Lantus] 10 unit SQ BID #100 mls Lancets/Blood Glucose Strips [Fora [id number] Strp-Lnct] 1 each MC DAILY # 30 combo..pkg Metformin HCl [Glucophage] 1,000 mg PO BID #60 tablet Metoprolol [Lopressor] 25 mg PO BID #60 tab [place], Insulin Disp., Safety [Healthy Accents Unifine Pentip] 1 each MC DAILY #60 dis.needle Home Medications: Aspirin Enteric Coated [Aspirin EC] 81 mg PO HS 08/23/16 [History] Atorvastatin [Lipitor] 40 mg PO HS 01/21/17 [History] Insulin Glargine [Lantus] 10 unit SQ BID #100 mls 01/21/17 [Rx] Lancets/Blood Glucose Strips [Fora [id number] Strp-Lnct] 1 each MC DAILY # 30 combo..pkg 01/21/17 [Rx] Metformin HCl [Glucophage] 1,000 mg PO BID #60 tablet 01/21/17 [Rx] Metoprolol [Lopressor] 25 mg PO BID #60 tab 01/21/17 [Rx] [place], Insulin Disp., Safety [Healthy Accents Unifine Pentip] 1 each MC DAILY #60 dis.needle 01/21/17 [Rx] Nitroglycerin 0.4 mg SL Q5MIN PRN #60 01/21/17 [Rx] Allergies/Adverse Reactions: Allergies No Known Allergies Allergy (Verified 01/20/17 08:59) Procedures/tests Complete & Pending: Procedures Performed prior 72 hours Category Date Time Status CT angio chest [CT] Stat Cat Scan 01/20/17 10:[address] head/brain wo con [CT] Stat Cat Scan 01/20/17 10:52 Completed CTA Neck [CT angio neck] [CT] Stat Cat Scan 01/20/17 10:57 Completed NM nicolasa perf SPECT multi [NM] Routine Exams 01/21/17 09:18 Taken EKG [ECG 12 lead ECG] [ECG] Stat Y 01/20/17 14:44 Completed EV echocardiogram Routine Y 01/21/17 11:27 Completed SP pharm nuclear stress Routine Y 01/21/17 09:18 Completed Date of admission: 01/20/17 10:10 Primary care physician: Sally Ortega CNP Consults: 01/20/17 15:14 Consult to Cardiology [CONS] Routine Comment: Consulting Provider: Cardiology Ana M Reason for Consult: chest pain Time Notified: 14:25 Call Completed: Yes - Patient Status Disposition: Home, Self-Care Condition: Fair - Discharge Instructions Follow Up With: Sally Ortega CNP [Primary Care Provider] - 01/24/17 3:00 pm (Please follow up as schedule..) Maria De Jesus Bailey DO [Partnered Physician] - Forms: ED Satisfaction Letter Additional Instructions: Please follow up with librarian special [facility] in 2-3 weeks Please establish with a PCP by calling [phone] and schedule a hospital f/u within 1 week Hospital course: Mr. Ortega is a 47 year old male - Time Spent with Patient Total time spent providing and/or coordinating discharge services: - Constitutional Vitals: Temp Pulse Resp BP Pulse Ox 98 F 84 14 150/92 97 01/21/17 14:05 01/21/17 14:05 01/21/17 14:05 01/21/17 14:05 01/21/17 14:05 - Attending Attestation I examined this patient and my medical decision-making was reviewed with the Resident Physician on 01/21/17. I agree with the documented findings, disposition and treatment plan as described except to the extent set forth below. Seen and examined with spouse at bedside Denies new complains 47 M with Uncontrolled DM, HTN HLD He is on metformin only at home HIs work up for dizziness is unremarkable so far At time of review, he was awaiting cardiology evaluation for chest pain, his EKG was unremarkable and troponin was negative His physical exam is unremarkable His ECHO and Stress test do not show ischemia, he however has diastolic dysfunction I educated the patient extensively on compliance with medications and diet, we have started him on basal insulin, which he needs to monitor with FS log and follow up with PCP Rest of details as in resident physician's documentation <Cheko Pennington - Last Filed: 01/21/17 18:14> Date of Encounter: 01/21/17 Time of Encounter: 14:58 - Discharge Diagnosis (1) Chest pain Priority: Primary Status: Acute Qualifiers: Chest pain type: unspecified Qualified Code(s): R07.9 - Chest pain, unspecified (2) Dizziness Priority: Secondary Status: Acute (3) Non-insulin dependent type 2 diabetes mellitus Priority: Secondary Status: Chronic (4) Hypertension Priority: Secondary Status: Chronic Qualifiers: Hypertension type: essential hypertension Qualified Code(s): I10 - Essential (primary) hypertension (5) HLD (hyperlipidemia) Priority: Secondary Status: Chronic Qualifiers: Hyperlipidemia type: unspecified Qualified Code(s): E78.5 - Hyperlipidemia , unspecified (6) DVT prophylaxis Priority: Secondary Status: Acute Procedures/tests Complete & Pending: Procedures Performed prior 72 hours Category Date Time Status CT angio chest [CT] Stat Cat Scan 01/20/17 10:[address] head/brain wo con [CT] Stat Cat Scan 01/20/17 10:52 Completed CTA Neck [CT angio neck] [CT] Stat Cat Scan 01/20/17 10:57 Completed NM nicolasa perf SPECT multi [NM] Routine Exams 01/21/17 09:18 Taken EKG [ECG 12 lead ECG] [ECG] Stat Y 01/20/17 14:44 Completed EV echocardiogram Routine Y 01/21/17 11:27 Completed SP pharm nuclear stress Routine Y 01/21/17 09:18 Completed Date of admission: 01/20/17 10:10 Primary care physician: Sally Ortega CNP Consults: 01/20/17 15:14 Consult to Cardiology [CONS] Routine Comment: Consulting Provider: Cardiology Ana M Reason for Consult: chest pain Time Notified: 14:25 Call Completed: Yes Discharging clinician: Cheko Pennington Anticipated date of discharge: 01/21/17 - Patient Status Functional capacity at discharge: independent ambulation Overall status at discharge: patient is progressing back to baseline - Diet and Activity Activity: resume usual activities as tolerated Diet: low fat, low cholesterol Interval History: Pt seen and examined. He reports no complaints this afternoon and is very eager to go home after he had a stress test and echo done. Hospital course: Mr. Ortega is a 47 year old male who presents to the ED with chest pain began at 3 am and woke him up from sleep. Patient states once he woke up he went back to sleep then woke up to urinate. Once the patient was in the bathroom he states he felt dizziness, started sweating and began to vomit. Patient describes the pain as sudden and crushing like an elephant sitting on his chest. States the pain radiated to his shoulder and is a 10/10 in severity. He did have an episode of chest pain roughly 4 years ago but described that as sharp. He had a cath done at that time which showed 50% stenosis, and no intervention was done. Troponins and EKG were negative during admission and cardiology was consulted and recommended exercise stress test and echo. Results were unremarkable and he will be going home on an insulin regimen and increased Metformin as his sugars were elevated during his stay. He will continuing his Lipitor, ASA and has been prescribed SL Nitro and Metoprolol. - Time Spent with Patient Total time spent providing and/or coordinating discharge services: Greater than 30 minutes - Constitutional Vitals: Temp Pulse Resp BP Pulse Ox 97.7 F 80 15 125/81 97 01/21/17 06:50 01/21/17 06:50 01/21/17 06:50 01/21/17 06:50 01/21/17 06:50 General appearance: Present: cooperative, A&O X 3, pleasant, no acute distress, answers questions appropriately - Head Head exam: Present: atraumatic, normocephalic - Eye Eye exam: Present: PERRL, conjuntiva pink, sclera anicteric Pupils: Present: PERRL - Neck Neck exam general surgery: Present: supple, trachea midline. Absent: lymphadenopathy - Respiratory Respiratory exam: Present: CTAB. Absent: accessory muscle use, rales, rhonchi, wheezes - Cardiovascular Cardiovascular exam: Present: RRR, +S1, +S2. Absent: diastolic murmur, gallop, rubs, systolic murmur - GI/Abdominal GI/Abdominal exam: Present: normal bowel sounds, soft, no peritoneal signs. Absent: distended, tenderness - Extremities Exam Extremities exam: Present: warm, radial pulses palpable and symmetrical. Absent : calf tenderness, cyanotic, pedal edema - Neurological Exam Neurological exam: Present: alert, no focal deficits. Absent: pronater drift, facial droop, speech deficit - Skin Skin exam: Present: dry, intact
[2017-01-21 15:23] VITALS: BP 150/92
[2017-01-21] MEDS ORDERED: Insulin DETEMIR 100 UNIT/ML X5UNITS SQ SCH (21:00)
--- NOTE | 2017-01-23 17:58 | Event Note ---
Date of Encounter: 01/24/17 Time of Encounter: 17:56 01/23/17 1800 Patient with urince culture growing klebsiella He had no urinary symptoms during admission I have sent prescription for omnicef to his pharmacy and called him on his cell phone, leaving a message to garbage pick up man antibiotics I also left him a voice mail with the current hospital cell phone assigned to me , to call me back should he have any questions 01/24/17 [id number] -Patient called on his cell phone number, another voice message left to garbage pick up man antibiotics, and call with questions
== END 2017-01-21 16:15 | disposition home or self-care (01) ==
LOC: EMEROO 08:58 → 2ANU 08:58
PROVIDERS: ADMIT Internal Medicine Endocrinology, Diabetes & Metabolism; ATTEND Internal Medicine

== ENCOUNTER 2017-06-24 10:06 | Inpatient (IN) ==
[2017-06-24] MEDS ORDERED: Aspirin 81 MG TAB.CHEW PO ONE (10:09)
--- NOTE | 2017-06-24 10:22 | Emergency Department Note ---
Disposition Clinical Impression: Left arm weakness Chest pain Qualifiers: Chest pain type: unspecified Qualified Code(s): R07.9 - Chest pain, unspecified Disposition: Admitted As Inpatient Condition: Fair Time of Disposition: 11:11 Neuro HPI - General Chief Complaint: ED Chest Pain Stated Complaint: chest pain, L arm numbness Time Seen by Provider: 06/24/17 10:09 Source: patient Mode of arrival: ambulatory Limitations: no limitations Nursing Notes Reviewed: Yes Vital Signs Reviewed: Yes - History of Present Illness HPI Narrative: 47-year-old male who woke up this morning 7 and 8:00 and stated that he was having chest pain but also noted some weakness and inability use his left hand. States he didn't sleep abnormally. He states that he woke up around between 7 and 8 and his symptoms were there. On further clarification he states that the weakness was there upon awakening so last known well is unknown. Symptom Onset Unknown: Yes Timing confirmed by: family member Location: left arm History of same: No Severity: moderate Quality: weakness Symptoms Improving: No Improves with: none Worsens with: none Context: sudden onset Associated symptoms: Reports: chest pain Treatments Prior to Arrival: none - Related Data Home Medications: Home Medications Medication Instructions Recorded Confirmed Aspirin Enteric Coated [Aspirin EC] 81 mg PO HS 08/23/16 06/24/17 Glimepiride [Amaryl] 2 mg PO DAILY 06/24/17 06/24/17 Previous Rx's Medication Instructions Recorded Metformin HCl [Glucophage] 1,000 mg PO BID #60 tablet 01/21/17 Nitroglycerin 0.4 mg SL Q5MIN PRN #60 01/21/17 Allergies/Adverse Reactions: Allergies Allergy/AdvReac Type Severity Reaction Status Date / Time No Known Allergies Allergy Verified 01/20/17 08:59 Constitutional: Denies: fever, chills, weakness, weight change Eyes: Denies: eye pain, eye discharge, vision change ENT ED: Denies: ear pain, throat pain, dental pain, hearing loss, epistaxis, congestion, dysphagia Cardiovascular: Reports: chest pain. Denies: palpitations, dyspnea on exertion , edema, syncope Respiratory: Denies: cough, dyspnea, wheezes, hemoptysis, stridor Gastrointestinal: Denies: abdominal pain, nausea, vomiting, diarrhea, constipation, hematemesis, melena, hematochezia Genitourinary: Denies: urgency, dysuria, frequency, hematuria Musculoskeletal: Denies: back pain, neck pain, arthralgia, myalgia Integumentary: Denies: rash, abrasion, lesions Neurological: Reports: weakness (Weakness left hand and left wrist), numbness ( Tant). Denies: headache, paresthesias, confusion, abnormal gait, vertigo Psychiatric: Denies: anxiety, depression, suicidal thoughts, homicidal thoughts , auditory hallucinations, visual hallucinations Endocrine: Denies: fatigue Hematological/Lymphatic: Denies: easy bleeding, easy bruising Allergic/Immunologic: Denies: facial swelling, urticaria Past Medical History - Past Medical History Medical history: Reports: coronary artery disease, diabetes, hyperlipidemia, other Surgical history: Reports: cancer surgery (removed tumor ), vascular surgery ( varicose veins) Psychiatric history: Reports: no psych history - Social History Smoking Status: Never smoker Smokeless Tobacco Status: No Alcohol use: Reports: none Drug use: Reports: none Physical Exam - General Limitations: no limitations General appearance: alert, in no apparent distress - Head Head exam: atraumatic, normocephalic, normal inspection - Eye Eye exam: Present: normal appearance, PERRL, EOMI - ENT ENT exam: normal exam, normal oropharynx, mucous membranes moist - Neck Neck exam: Present: normal inspection, full ROM, trachea midline - Chest Chest inspection: Present: normal inspection, symmetric chest wall rise - Respiratory Respiratory exam: Present: normal lung sounds bilaterally - Cardiovascular Cardiovascular exam: Present: regular rate, normal rhythm, normal heart sounds - Abdominal Exam Abdominal exam: Present: soft, Non-Tender. Absent: tenderness, distention, guarding, rebound, rigidity - Extremities Exam Extremities exam: Present: normal inspection, full ROM. Absent: tenderness, pedal edema - Expanded Lower Extremity Exam Neurovascular/Tendon exam: Present: motor deficit (He has weakness of tension at the wrist and intrinsic hand weakness.) Gait: observed and normal - Back Exam Back exam: Present: normal inspection, full ROM. Absent: tenderness - Neurological Exam Neurological exam: Present: alert, oriented X3, normal gait, motor sensory deficit (Motor weakness at the wrist with extension and also some intrinsic hand weakness) - Psychiatric Psychiatric exam: Present: normal affect, normal mood - Skin Skin exam: Present: warm, dry, intact, normal color Course - Reevaluation(s) Reevaluation #1: 47-year-old male who comes in complaining of chest pain and also some left hand weakness. Workup included a CT of the head which was negative and his initial cardiac workup is negative. Patient will be admitted for further evaluation and treatment. Time: 11:12 Reevaluation #2: Patient's IV infiltrated that according to radiology they started another IV they recommend ice to the area. Time: 15:27 - Consultations Consultation #1: Discussed with Dr. Schneider neurology. Patient has unknown onset of symptoms is not a TPA candidate. He will see the patient in consult. Time: 10:27 Consultation #2: Discussed with , admit. Time: 11:11 Vital Signs Temperature 98.1 F 06/24/17 10:09 Pulse Rate 127 06/24/17 10:09 Respiratory Rate 19 06/24/17 10:09 Blood Pressure 139/91 06/24/17 10:09 O2 Sat by Pulse Oximetry 95 06/24/17 10:09 Temperature 98.1 F 06/24/17 10:09 Pulse Rate 118 06/24/17 13:06 Respiratory Rate 14 06/24/17 13:06 Blood Pressure 127/81 06/24/17 13:06 O2 Sat by Pulse Oximetry 94 06/24/17 13:06 Oxygen Delivery Oxygen Delivery Room Air Neuro Symptoms/Deficit - Lab Data Lab results reviewed: Yes I reviewed the patient's lab results. Result diagrams: 06/24/17 10:23 06/24/17 10:23 Lab Results 06/24/17 06/24/17 06/24/17 Range/Units 10:18 10:23 10:23 WBC 18.2 H (4.3-11.1) K/mcL RBC 5.31 (4.19-5.50) M/mcL Hgb 13.3 (12.9-16.9) g/dL Hct 41.6 (37.5-50.1) % MCV 78.3 L (83.0-100.0) fL MCH 25.0 L (28.0-33.3) pg MCHC 32.0 (31.6-35.5) g/dL RDW 15.0 H (11.5-14.5) % Plt Count 305 (140-400) K/mcL MPV 8.7 L (9.4-12.4) fL Immature Gran % 0.7 (0-4) % Seg Neutrophils % 92.2 % Lymphocytes % 4.3 % Monocytes % 2.6 % Eosinophils % 0.0 % Basophils % 0.2 % Neutrophils # 16.8 H (1.6-8.9) K/mcL Lymphocytes # 0.8 (0.6-4.6) K/mcL Monocytes # 0.5 (0.0-1.3) K/mcL Eosinophils # 0.0 (0.0-0.6) K/mcL Basophils # 0.0 (0.0-0.2) K/mcL PT 15.3 H (9.4-12.1) Seconds INR 1.4 APTT 32.1 (26.0-36.0) Seconds D-Dimer 1179 H (0-500) ng/mLFEU Sodium (136-145) mEq/L Potassium (3.5-5.1) mEq/L Chloride (98-107) mEq/L Carbon Dioxide (23-29) mEq/L BUN (6-20) mg/dL Creatinine (0.70-1.30) mg/dL Est GFR ( Amer) (> 60) Est GFR (Non-Af Amer) (> 60) BUN/Creatinine Ratio (6-26) Glucose (70-105) mg/dL POC Glucose 295 H (58-89) Calculated Osmolality (280-300) Calcium (8.6-10.3) mg/dL Troponin I (< 0.04) ng/mL Urine Color (Yellow) Urine Clarity (Clear) Urine pH (5.0-8.0) pH Units Ur Specific [place] (1.010-1.025) Urine Protein (Neg-Trace) mg/dL Urine Glucose (UA) (Normal) mg/dL Urine Ketones (Negative) mg/dL Urine Blood (Negative) Urine Nitrite (Negative) Urine Bilirubin (Negative) Urine Urobilinogen (Normal) mg/dL Ur Leukocyte Esterase (Negative) Urine Microscopic RBC (0-3) per hpf Urine Microscopic WBC (0-3) per hpf Ur Squamous Epith Cells (None-Few) per lpf Urine Bacteria (None-Few) per hpf Hyaline Casts (None-Few) per lpf Granular Casts (None Seen) per lpf Ur Culture Indicated? (NO) 0106/24/17 06/24/17 Range/Units 10:23 10:23 11:23 WBC (4.3-11.1) K/mcL RBC (4.19-5.50) M/mcL Hgb (12.9-16.9) g/dL Hct (37.5-50.1) % MCV (83.0-100.0) fL MCH (28.0-33.3) pg MCHC (31.6-35.5) g/dL RDW (11.5-14.5) % Plt Count (140-400) K/mcL MPV (9.4-12.4) fL Immature Gran % (0-4) % Seg Neutrophils % % Lymphocytes % % Monocytes % % Eosinophils % % Basophils % % Neutrophils # (1.6-8.9) K/mcL Lymphocytes # (0.6-4.6) K/mcL Monocytes # (0.0-1.3) K/mcL Eosinophils # (0.0-0.6) K/mcL Basophils # (0.0-0.2) K/mcL PT (9.4-12.1) Seconds INR APTT (26.0-36.0) Seconds D-Dimer (0-500) ng/mLFEU Sodium 130 L (136-145) mEq/L Potassium 3.8 (3.5-5.1) mEq/L Chloride 93 L (98-107) mEq/L Carbon Dioxide 23 (23-29) mEq/L BUN 21 H (6-20) mg/dL Creatinine 1.07 (0.70-1.30) mg/dL Est GFR ( Amer) > 60 (> 60) Est GFR (Non-Af Amer) > 60 (> 60) BUN/Creatinine Ratio 20 (6-26) Glucose 276 H (70-105) mg/dL POC Glucose (58-89) Calculated Osmolality 283 (280-300) Calcium 9.4 (8.6-10.3) mg/dL Troponin I 0.03 (< 0.04) ng/mL Urine Color Dark Yellow (Yellow) Urine Clarity Turbid A (Clear) Urine pH 5.5 (5.0-8.0) pH Units Ur Specific [place] 1.024 (1.010-1.025) Urine Protein 100 H (Neg-Trace) mg/dL Urine Glucose (UA) >=1000 H (Normal) mg/dL Urine Ketones 40 H (Negative) mg/dL Urine Blood Large H (Negative) Urine Nitrite Negative (Negative) Urine Bilirubin Small H (Negative) Urine Urobilinogen Normal (Normal) mg/dL Ur Leukocyte Esterase Small H (Negative) Urine Microscopic RBC 3-5 H (0-3) per hpf Urine Microscopic WBC TNTC H (0-3) per hpf Ur Squamous Epith Cells Many H (None-Few) per lpf Urine Bacteria Many H (None-Few) per hpf Hyaline Casts Few (None-Few) per lpf Granular Casts Few H (None Seen) per lpf Ur Culture Indicated? NO. (NO) 06/24/17 Range/Units 13:51 WBC (4.3-11.1) K/mcL RBC (4.19-5.50) M/mcL Hgb (12.9-16.9) g/dL Hct (37.5-50.1) % MCV (83.0-100.0) fL MCH (28.0-33.3) pg MCHC (31.6-35.5) g/dL RDW (11.5-14.5) % Plt Count (140-400) K/mcL MPV (9.4-12.4) fL Immature Gran % (0-4) % Seg Neutrophils % % Lymphocytes % % Monocytes % % Eosinophils % % Basophils % % Neutrophils # (1.6-8.9) K/mcL Lymphocytes # (0.6-4.6) K/mcL Monocytes # (0.0-1.3) K/mcL Eosinophils # (0.0-0.6) K/mcL Basophils # (0.0-0.2) K/mcL PT (9.4-12.1) Seconds INR APTT (26.0-36.0) Seconds D-Dimer (0-500) ng/mLFEU Sodium (136-145) mEq/L Potassium (3.5-5.1) mEq/L Chloride (98-107) mEq/L Carbon Dioxide (23-29) mEq/L BUN (6-20) mg/dL Creatinine (0.70-1.30) mg/dL Est GFR ( Amer) (> 60) Est GFR (Non-Af Amer) (> 60) BUN/Creatinine Ratio (6-26) Glucose (70-105) mg/dL POC Glucose (58-89) Calculated Osmolality (280-300) Calcium (8.6-10.3) mg/dL Troponin I < 0.03 (< 0.04) ng/mL Urine Color (Yellow) Urine Clarity (Clear) Urine pH (5.0-8.0) pH Units Ur Specific [place] (1.010-1.025) Urine Protein (Neg-Trace) mg/dL Urine Glucose (UA) (Normal) mg/dL Urine Ketones (Negative) mg/dL Urine Blood (Negative) Urine Nitrite (Negative) Urine Bilirubin (Negative) Urine Urobilinogen (Normal) mg/dL Ur Leukocyte Esterase (Negative) Urine Microscopic RBC (0-3) per hpf Urine Microscopic WBC (0-3) per hpf Ur Squamous Epith Cells (None-Few) per lpf Urine Bacteria (None-Few) per hpf Hyaline Casts (None-Few) per lpf Granular Casts (None Seen) per lpf Ur Culture Indicated? (NO) - Radiology Data Radiology results reviewed: Yes I reviewed the patient's radiology results. Chest X-Ray 06/24/17 10:09 IMPRESSION: No evidence for acute cardiopulmonary process. D/ / Brad Millan MD / Brad Millan MD Interpreting Provider: Brad Millan MD Head CT 06/24/17 10:15 IMPRESSION: Stable appearance of the brain with no acute intracranial abnormality. D/ / Sandeep Zavala MD / Sandeep Zavala MD Interpreting Provider: Sandeep Zavala MD - EKG Data EKG attestation: Yes I reviewed and interpreted this EKG. EKG shows normal: sinus rhythm Rate: tachycardia Rhythm: NSR Interpretation: no acute changes NIH Stroke Scale - Level of Consciousness LOC: Alert - LOC Questions LOC Questions: Answers both correctly - LOC Commands LOC Commands: Performs both correctly - Best Gaze Best Gaze: Normal - Visual Visual: No visual loss - Facial Palsy Facial Palsy: Normal - Motor Arms Motor Arm-Left: Drift, does NOT hit bed Motor Arm-Right: No drift for 10 seconds - Motor Legs Motor Leg-Left: No drift for 5 seconds Motor Leg-Right: No drift for 5 seconds - Limb Ataxia Limb Ataxia: Present in ONE limb - Sensory Sensory: Normal - Best Language Best Language: No aphasia - Dysarthria Dysarthria: Normal - Extinction and Inattention Extinction and Inattention: Normal - NIHSS Total Score NIHSS Total Score: 2 TPA Checklist - LKW: 3-4.5 hrs Add. Warnings/Precautions Patient/family understanding: The patient/family members have been counseled and understood the risk, benefit , and alternatives of treatment.
[2017-06-24 10:32] LABS: Basophils % 0.2 %; Hematocrit 41.6 % (37.5-50.1); Hemoglobin 13.3 g/dL (12.9-16.9); Immature Granulocytes % 0.7 % (0-4); Lymphocytes # 0.8 K/mcL (0.6-4.6); Lymphocytes % 4.3 %; Mean Corpuscular Volume 78.3 fL (83.0-100.0); Mean Platelet Volume 8.7 fL (9.4-12.4); Monocytes # 0.5 K/mcL (0.0-1.3); Monocytes % 2.6 %; Neutrophils # 16.8 K/mcL (1.6-8.9); Platelet Count 305 K/mcL (140-400); Red Blood Count 5.31 M/mcL (4.19-5.50); Segmented Neutrophils % 92.2 %
[2017-06-24 10:37] LABS: INR 1.4; Prothrombin Time 15.3 Seconds (9.4-12.1)
[2017-06-24 10:39] LABS: Activated Partial Thrombo Time 32.1 Seconds (26.0-36.0)
[2017-06-24 10:55] LABS: BUN/Creatinine Ratio 20 (6-26); Blood Urea Nitrogen 21 mg/dL (6-20); Calcium 9.4 mg/dL (8.6-10.3); Carbon Dioxide 23 mEq/L (23-29); Chloride 93 mEq/L (98-107); Glucose 276 mg/dL (70-105); Osmolality,Calculated 283 (280-300); Potassium 3.8 mEq/L (3.5-5.1); Sodium 130 mEq/L (136-145); eGFR For African Americans > 60 (> 60); eGFR For Non-African Americans > 60 (> 60)
[2017-06-24 11:31] LABS: Bilirubin,Urine Small (Negative); Blood,Urine Large (Negative); Clarity,Urine Turbid (Clear); Color,Urine Dark Yellow (Yellow); Glucose,Urine (UA) >=1000 mg/dL (Normal); Ketones,Urine 40 mg/dL (Negative); Leukocyte Esterase,Urine Small (Negative); Nitrite,Urine Negative (Negative); PH,Urine 5.5 pH Units (5.0-8.0); Protein,Urine 100 mg/dL (Neg-Trace); Specific Gravity,Urine 1.024 (1.010-1.025); Urobilinogen,Urine Normal (Normal)
[2017-06-24 11:33] LABS: Bacteria,Urine Many per hpf (None-Few); Squamous Epithelial Cell,Urine Many per lpf (None-Few); WBC,Urine TNTC per hpf (0-3)
[2017-06-24 11:51] LABS: Granular Casts,Urine Few per lpf (None Seen); Hyaline Casts,Urine Few per lpf (None-Few)
[2017-06-24] MEDS ORDERED: Mag Hydrox/Al Hydrox/Simeth 30 ML UDC PO PRN (13:38)
[2017-06-24] MEDS ORDERED: *HR* Morphine 2 MG/ML SYRINGE IVP PRN (13:38)
[2017-06-24] MEDS ORDERED: Naloxone 0.4 MG/ML INJ IVP PRN (13:38)
[2017-06-24] MEDS ORDERED: Nitroglycerin 0.4 MG TAB.SUBL SL PRN (13:42)
--- NOTE | 2017-06-24 13:49 | Internal Med History&Physical ---
Date of Encounter: 06/29/17 Time of Encounter: 13:46 Assessment and Plan (1) Chest pain Status: Acute 47/male Admitted with persistent chest pain. KAERN score: 3. History of diabetes, hypertension, dyslipidemia, persistent chest pain. Patient noted to have a elevated white blood cell count of 18,000. Plan: Admit as inpatient: Patient has a chest pain along with that there is a left arm weakness which is a new onset. Aspirin/beta konstantin/Lipitor Cycle troponin. Echocardiogram. Resume home medication. Dictated troponins negative, if echocardiogram is normal: Consider stress test. If the stress test is abnormal then please call cardiology for possible catheterization. If abnormal troponin/abnormal echocardiogram: Please call cardiology. Qualifiers: Chest pain type: unspecified Qualified Code(s): R07.9 - Chest pain, unspecified (2) Left arm weakness Status: Acute Patient woke up with a left arm weakness. CT head: Negative. Plan: We will get CT of the neck. Noted that neurology is already on the board. We will follow the recommendation from neurology. (3) Hypertension Status: Chronic The blood pressure of this patient is within acceptable limits Qualifiers: Hypertension type: essential hypertension Qualified Code(s): I10 - Essential (primary) hypertension (4) HLD (hyperlipidemia) Status: Chronic Stable Qualifiers: Hyperlipidemia type: unspecified Qualified Code(s): E78.5 - Hyperlipidemia , unspecified (5) CAD (coronary artery disease) Status: Acute Stable Qualifiers: Coronary Disease-Associated Artery/Lesion type: [place] artery [place] vs. transplanted heart: [place] heart Associated angina: angina presence unspecified Qualified Code(s): I25.10 - Atherosclerotic heart disease of [place] coronary artery without angina pectoris (6) Diabetes mellitus Status: Acute We will follow the subcutaneous insulin order set and we will follow the guidelines from the etc. accordingly. Qualifiers: Diabetes mellitus type: type 2 Diabetes mellitus complication status: with unspecified complications Diabetes mellitus clinical instructor insulin use: unspecified residential insulin use status Qualified Code(s): E11.8 - Type 2 diabetes mellitus with unspecified complications (7) DVT prophylaxis Status: Acute scd Medical decision making: This patient is a moderate to severe risk of worsening in spite of being on appropriate medical occasions due to the underlying comorbid status. Internal Medicine - H&P: HPI Chief complaint: Chest pain with left arm weakness Admitted From: Emergency Dept Plans for Post Hospital Care: Home History of present illness: PCP: Nurse practitioner Sally Ortega. Brief past medical history: Diabetes type 2, hypertension, hyperlipidemia, coronary artery disease, History of present medical illness: As per patient, he woke up this morning and noted that patient has excruciating chest pain which is retrosternal in nature, nonradiating, localized, associated with the movement, getting worse with the walking and lifting heavy material and relieved by rest and nitroglycerin. Patient also complains of he has a left sided wrist as well as part of the arm drawn this morning. Patient denies any abnormal activity yesterday in terms of drinking alcohol/consumed drugs. 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 Patient's was at bedside. She confirmed the findings. Both patient and his family were concerned regarding this new onset of weakness of the left arm and there was reason they came to emergency room. Workup in the emergency room: Patient was evaluated in the emergency room. Patient underwent basic labs checkup. Patient noted to have an elevated d- dimer and he is getting CT scan for the same. Reason for admission: Chest pain to rule out ACS, acute onset of left arm weakness which needs further evaluation. Family history: Noncontributory Past Med Surg Social Fam HX - Past Medical History Medical history: coronary artery disease, diabetes, hyperlipidemia, other Psychiatric history: no psych history - Past Surgical History Surgical History: cancer surgery (removed tumor ), vascular surgery (varicose veins) - Social History Smoking Status: Never smoker Smokeless Tobacco Status: No Alcohol use: none Drug use: none - Family History Mother Living Status: Hx Family Cardiac Disorders: Yes Hx Family Endocrine Disorder: Yes Father Hx Family Cardiac Disorders: Yes ([place] at age 48) Hx Family Endocrine Disorder: Yes Internal Medicine - H&P: Meds Aspirin Enteric Coated [Aspirin EC] 81 mg PO HS 08/23/16 [History] Metformin HCl [Glucophage] 1,000 mg PO BID #60 tablet 01/21/17 [Rx] Nitroglycerin 0.4 mg SL Q5MIN PRN #60 01/21/17 [Rx] Glimepiride [Amaryl] 2 mg PO DAILY 06/24/17 [History] levoFLOXacin [Levaquin] 750 mg PO DAILY 5 Days #5 tablet 06/26/17 [Rx] 3 Allergy/AdvReac Type Severity Reaction Status Date / Time No Known Allergies Allergy Verified 01/20/17 08:59 All Systems PM: A 10-system review of systems was performed and is negative for pertinent findings except as documented above in the HPI. - Constitutional Constitutional: no chills, no fever(s), no night sweats - EENT Eyes: no change in vision, no discharge, no pain, no photophobia Ears: no ear discharge, no ear pain, no tinnitus Nose, mouth and throat: no dysphagia, no nasal discharge, no neck pain, no sore throat - Cardiovascular Cardiovascular ROS IM: no chest pain, no diaphoresis, no dyspnea, no lightheadedness, no palpitations, no syncope - Respiratory Respiratory: no cough, no dyspnea, no wheezing, no excessive phlegm production - Gastrointestinal Gastrointestinal: no abdominal pain, no diarrhea, no hematemesis, no hematochezia, no melena, no nausea, no vomiting - Musculoskeletal Musculoskeletal ROS IM: no numbness, no tingling - Integumentary Integumentary IM: no rash, no unusual bruising - Neurological Neurological ROS: no confusion, no convulsions, no focal weakness, no numbness, no tingling, no tremor(s) - Hematologic/Lymphatic Hematologic/Lymphatic: no easy bruising - Constitutional Vitals: Temp Pulse Resp BP Pulse Ox 98.1 F 118 14 127/81 94 06/24/17 10:09 06/24/17 13:06 06/24/17 13:06 06/24/17 13:06 06/24/17 13:06 - Head Head exam: Present: atraumatic, normocephalic - Eye Eye exam: Present: PERRL, conjuntiva pink, sclera anicteric Pupils: Present: PERRL - Neck Neck exam general surgery: Present: supple, trachea midline. Absent: lymphadenopathy - Respiratory Respiratory exam: Present: CTAB. Absent: accessory muscle use, rales, rhonchi, wheezes - Cardiovascular Cardiovascular exam: Present: RRR, +S1, +S2. Absent: diastolic murmur, gallop, rubs, systolic murmur - GI/Abdominal GI/Abdominal exam: Present: normal bowel sounds, soft, no peritoneal signs. Absent: distended, tenderness - Extremities Exam Extremities exam: Present: warm, radial pulses palpable and symmetrical. Absent : calf tenderness, cyanotic, pedal edema - Neurological Exam Neurological exam: Present: CN II-XII intact, oriented X3, no focal deficits. Absent: pronater drift, facial droop, speech deficit - Skin Skin exam: Present: dry, intact Internal Med - H&P Results - Labs CBC & Chem 7: 06/26/17 04:32 06/26/17 04:32 Labs: Short CBC 06/24/17 Range/Units 10:23 WBC 18.2 H (4.3-11.1) K/mcL Hgb 13.3 (12.9-16.9) g/dL Hct 41.6 (37.5-50.1) % Plt Count 305 (140-400) K/mcL Neutrophils # 16.8 H (1.6-8.9) K/mcL BMP 06/24/17 10:23 Sodium 130 L Potassium 3.8 Chloride 93 L Carbon Dioxide 23 BUN 21 H Creatinine 1.07 Glucose 276 H Calcium 9.4 Cardiac Enzymes 06/24/17 Range/Units 10:23 Troponin I 0.03 (< 0.04) ng/mL Urine 06/24/17 Range/Units 11:23 Urine Color Dark Yellow (Yellow) Urine Clarity Turbid A (Clear) Urine pH 5.5 (5.0-8.0) pH Units Ur Specific [place] 1.024 (1.010-1.025) Urine Protein 100 H (Neg-Trace) mg/dL Urine Glucose (UA) >=1000 H (Normal) mg/dL - Impressions ITS Impressions Chest X-Ray 06/24/17 10:09 IMPRESSION: No evidence for acute cardiopulmonary process. D/ / Brad Millan MD / Brad Millan MD Interpreting Provider: Brad Millan MD Head CT 06/24/17 10:15 IMPRESSION: Stable appearance of the brain with no acute intracranial abnormality. D/ / Sandeep Zavala MD / Sandeep Zavala MD Interpreting Provider: Sandeep Zavala MD
--- NOTE | 2017-06-24 14:07 | Neurology - Consult Note ---
<Edil Wilson - Last Filed: 06/24/17 15:23> Date of Encounter: 06/24/17 Time of Encounter: 14:01 Assessment and Plan (1) Left hand weakness Current Visit: Yes Status: Acute patient states that he has weakness of his left hand that started since he woke up this morning, and this has never happened before. He is not able to flex, extend his left wrist or use his left fingers due to weakness. CT head: no acute process Etiology likely secondary to radial nerve palsy. However, stroke must be ruled out as patient does have risk factors present. Plan: echo pending CTA neck pending agree with PT/OT History of Present Illness Chief complaint: left hand weakness HPI: Mr. Ortega is a 47 year old male with PMHx of CAD, DM, HLD. patient arrived to the ED today with chief complaint of chest pain and left hand weakness that started earlier this morning when he woke up. He states that nothing like this ever happened to him before. He stated that his left hand was limp and he could not use it at all. He could not extend his wrist, or use his fingers. He denies any numbness or tingling in this area. He denies any recent trauma or drug use. 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 He denies slurred speech, facial drooping, gait abnormality , memory problems, shortness of breath, fever, bowel or bladder incontinence. He admits to some chills but denies fever. Past Med Surg Social Fam HX - Past Medical History Medical history: coronary artery disease, diabetes, hyperlipidemia, other Psychiatric history: no psych history - Past Surgical History Surgical History: cancer surgery (removed tumor ), vascular surgery (varicose veins) - Social History Smoking Status: Never smoker Smokeless Tobacco Status: No Alcohol use: none Drug use: none - Family History Mother Living Status: Hx Family Cardiac Disorders: Yes Hx Family Endocrine Disorder: Yes Father Hx Family Cardiac Disorders: Yes ([place] at age 48) Hx Family Endocrine Disorder: Yes Medications and Allergies Aspirin Enteric Coated [Aspirin EC] 81 mg PO HS 08/23/16 [History] Metformin HCl [Glucophage] 1,000 mg PO BID #60 tablet 01/21/17 [Rx] Nitroglycerin 0.4 mg SL Q5MIN PRN #60 01/21/17 [Rx] Glimepiride [Amaryl] 2 mg PO DAILY 06/24/17 [History] 3 Allergy/AdvReac Type Severity Reaction Status Date / Time No Known Allergies Allergy Verified 01/20/17 08:59 All Systems: A 10-system review of systems was performed and is negative for pertinent findings except as documented above in the HPI. - Constitutional Constitutional ROS IM: as per HPI Physical Examination - Vital Signs Vital Signs: Initial Vital Signs Temp Pulse Resp BP Pulse Ox 98.1 F 127 19 139/91 95 06/24/17 10:06/24/17 10:06/24/17 10:06/24/17 10:06/24/17 10:09 - Constitutional General appearance: comfortable - Neurologic Sensorimotor examination: intact Motor examination - right side: 5/5: deltoids, biceps, triceps, wrist flexion, wrist extension, bi application developer, hip flexors, quadriceps, plantarflexion Motor examination - left side: 1/5: wrist flexion, wrist extension, bi application developer, 5/5: deltoids, biceps, triceps, hip flexors, tibialis Anterior, plantarflexion Detailed sensory examination: intact Reflex and gait examination: intact Mental Status Examination: awake, alert, oriented to person, oriented to place, oriented to time, follows commands appropriately, answers questions appropriately, no aphasia Cranial nerve examination: PERRL, EOMI, visual franco intact, sensory to face intact Results - Laboratory Findings CBC and BMP: 06/24/17 10:23 06/24/17 10:23 Abnormal lab findings: Abnormal lab results WBC 18.2 K/mcL (4.3-11.1) H 06/24/17 10:23 MCV 78.3 fL (83.0-100.0) L 06/24/17 10:23 MCH 25.0 pg (28.0-33.3) L 06/24/17 10:23 RDW 15.0 % (11.5-14.5) H 06/24/17 10:23 MPV 8.7 fL (9.4-12.4) L 06/24/17 10:23 Neutrophils # 16.8 K/mcL (1.6-8.9) H 06/24/17 10:23 PT 15.3 Seconds (9.4-12.1) H 06/24/17 10:23 D-Dimer 1179 ng/mLFEU (0-500) H 06/24/17 10:23 Sodium 130 mEq/L (136-145) L 06/24/17 10:23 Chloride 93 mEq/L (98-107) L 06/24/17 10:23 BUN 21 mg/dL (6-20) H 06/24/17 10:23 Glucose 276 mg/dL (70-105) H 06/24/17 10:23 POC Glucose 295 (58-89) H 06/24/17 10:18 Urine Clarity Turbid (Clear) A 06/24/17 11:23 Urine Protein 100 mg/dL (Neg-Trace) H 06/24/17 11:23 Urine Glucose (UA) >=1000 mg/dL (Normal) H 06/24/17 11:23 Urine Ketones 40 mg/dL (Negative) H 06/24/17 11:23 Urine Blood Large (Negative) H 06/24/17 11:23 Urine Bilirubin Small (Negative) H 06/24/17 11:23 Ur Leukocyte Esterase Small (Negative) H 06/24/17 11:23 Urine Microscopic RBC 3-5 per hpf (0-3) H 06/24/17 11:23 Urine Microscopic WBC TNTC per hpf (0-3) H 06/24/17 11:23 Ur Squamous Epith Cells Many per lpf (None-Few) H 06/24/17 11:23 Urine Bacteria Many per hpf (None-Few) H 06/24/17 11:23 Granular Casts Few per lpf (None Seen) H 06/24/17 11:23 Consult Discharge Plan - Plan Referrals: Sally Ortega, [facility] [Primary Care Provider] - <Alex Schneider - Last Filed: 06/24/17 17:01> Date of Encounter: 06/24/17 Time of Encounter: 16:54 Assessment and Plan (1) Left hand weakness Current Visit: Yes Status: Acute as above. I believe that the differential diagnoses consists of possibility of a lacunar stroke causing pure motor weakness involving the right basal ganglia or internal capsule. Certainly a radial nerve palsy is in the differential, however the weakness seems to extend beyond a pure radial nerve lesion as there is also weakness of the deltoid some weakness of the biceps and triceps above the spiral groove. Therefore plexopathy or perhaps radiculopathy may come into the differential. Idiopathic brachial plexitis is also a possibility. Recommend MRI scan of the brain, and possibly MRI of the left brachial plexus. EMG may be indicated following discharge. History of Present Illness HPI: Mr. Ortega is a 47 year old male who is seen for neurologic evaluation secondary to left upper extremity weakness. He does have some shoulder pain. The patient was seen and examined along with the neurology resident. I agree with her synopsis as stated above. All Systems: A 10-system review of systems was performed and is negative for pertinent findings except as documented above in the HPI. Review of Systems: 10 point review of systems consistent with history of present illness and is otherwise negative. Physical Examination - Vital Signs Vital Signs: Initial Vital Signs Temp Pulse Resp BP Pulse Ox 98.1 F 127 19 139/91 95 06/24/17 10:06/24/17 10:06/24/17 10:06/24/17 10:06/24/17 10:09 - Neurologic Motor examination - left side: 3/5: deltoids, 4/5: biceps, triceps Cranial nerve examination: PERRL, EOMI, visual franco intact, corneal reflexes brisk symmetrically, sensory to face intact, mastication intact, no facial asymmetry is present, no dysarthria, hearing is intact symmetrically, soft palate elevates bilaterally upon phonation, gag reflex intact, flexes SCM and trapezius muscles symmetrically with full power, tongue protrudes midline, no atrophy or facial fasiculations present Results - Laboratory Findings CBC and BMP: 06/24/17 10:23 06/24/17 10:23 Abnormal lab findings: Abnormal lab results WBC 18.2 K/mcL (4.3-11.1) H 06/24/17 10:23 MCV 78.3 fL (83.0-100.0) L 06/24/17 10:23 MCH 25.0 pg (28.0-33.3) L 06/24/17 10:23 RDW 15.0 % (11.5-14.5) H 06/24/17 10:23 MPV 8.7 fL (9.4-12.4) L 06/24/17 10:23 Neutrophils # 16.8 K/mcL (1.6-8.9) H 06/24/17 10:23 PT 15.3 Seconds (9.4-12.1) H 06/24/17 10:23 D-Dimer 1179 ng/mLFEU (0-500) H 06/24/17 10:23 Sodium 130 mEq/L (136-145) L 06/24/17 10:23 Chloride 93 mEq/L (98-107) L 06/24/17 10:23 BUN 21 mg/dL (6-20) H 06/24/17 10:23 Glucose 276 mg/dL (70-105) H 06/24/17 10:23 POC Glucose 295 (58-89) H 06/24/17 10:18 Urine Clarity Turbid (Clear) A 06/24/17 11:23 Urine Protein 100 mg/dL (Neg-Trace) H 06/24/17 11:23 Urine Glucose (UA) >=1000 mg/dL (Normal) H 06/24/17 11:23 Urine Ketones 40 mg/dL (Negative) H 06/24/17 11:23 Urine Blood Large (Negative) H 06/24/17 11:23 Urine Bilirubin Small (Negative) H 06/24/17 11:23 Ur Leukocyte Esterase Small (Negative) H 06/24/17 11:23 Urine Microscopic RBC 3-5 per hpf (0-3) H 06/24/17 11:23 Urine Microscopic WBC TNTC per hpf (0-3) H 06/24/17 11:23 Ur Squamous Epith Cells Many per lpf (None-Few) H 06/24/17 11:23 Urine Bacteria Many per hpf (None-Few) H 06/24/17 11:23 Granular Casts Few per lpf (None Seen) H 06/24/17 11:23
--- NOTE | 2017-06-24 17:03 | Electrocardiograph Report ---
[facility] Test Date: 2017-06-24 Pat Name: Stefano Orteag Department: 104 Room: 3B34 Gender: M Talk Show Host: : 1970 Requested By: Ramin Stephens Order Number: [id number] Reading MD: Mio Parra DO Measurements Intervals [place] Rate: 123 P: 57 PA: 150 QRS: -10 QRSD: 88 T: 29 QT: 288 QTc: 361 Interpretive Statements SINUS TACHYCARDIA ABNORMAL RHYTHM ECG Electronically Signed On 06-24-2017 17:02:19 EST by Moi Parra DO
[2017-06-24] MEDS ORDERED: Levofloxacin 500 MG/100 ML 500 MG/100 ML BAG IVPB SCH (18:00)
[2017-06-24] MEDS ORDERED: Dextrose Gel 15 GM/37.5 ML TUBE PO PRN ×2 (19:48)
[2017-06-24] MEDS ORDERED: *HR* Dextrose 50 % in Water (Syg) 50 ML SYRINGE IVP PRN (19:48)
[2017-06-24] MEDS ORDERED: D5% in Water 1,000 ML IVC PRN (19:48)
[2017-06-24] MEDS: Aspirin Enteric Coated 81 MG Tablet PO SCH (19:59)
[2017-06-24] MEDS: Insulin LISPRO 300 UNITS/3 ML VIAL SQ SCH (20:25)
[2017-06-25] MEDS: Insulin LISPRO 300 UNITS/3 ML VIAL SQ SCH ×5 (00:07→20:54)
[2017-06-25 01:53] LABS: Basophils % 0.2 %; Hematocrit 33.8 % (37.5-50.1); Immature Granulocytes % 0.5 % (0-4); Lymphocytes # 0.9 K/mcL (0.6-4.6); Mean Corpuscular Hemoglobin 24.7 pg (28.0-33.3); Mean Corpuscular Volume 77.2 fL (83.0-100.0); Mean Platelet Volume 8.9 fL (9.4-12.4); Monocytes # 0.6 K/mcL (0.0-1.3); Monocytes % 3.6 %; Neutrophils # 15.5 K/mcL (1.6-8.9); Platelet Count 281 K/mcL (140-400); Red Blood Count 4.38 M/mcL (4.19-5.50); Red Cell Distribution Width 14.9 % (11.5-14.5); Segmented Neutrophils % 90.7 %
[2017-06-25 02:00] LABS: INR 1.5; Prothrombin Time 16.1 Seconds (9.4-12.1)
[2017-06-25 02:03] LABS: Activated Partial Thrombo Time 28.6 Seconds (26.0-36.0)
[2017-06-25 02:06] LABS: Hemoglobin 10.8 g/dL (12.9-16.9)
[2017-06-25 02:08] LABS: Alanine Aminotransferase 16 Units/L (7-52); Albumin 3.2 g/dL (3.5-5.7); Albumin/Globulin Ratio 0.7 (1.1-2.2); Alkaline Phosphatase 50 Units/L (34-104); Aspartate Amino Transferase 11 Units/L (13-39); BUN/Creatinine Ratio 29 (6-26); Bilirubin,Total 0.6 mg/dL (0.3-1.0); Blood Urea Nitrogen 27 mg/dL (6-20); Calcium 8.5 mg/dL (8.6-10.3); Carbon Dioxide 27 mEq/L (23-29); Chloride 94 mEq/L (98-107); Chol/HDL Ratio 7.9 (0-4.9); Cholesterol 143 mg/dL (< 200); Globulin 4.3 g/dL (2.4-3.5); Glucose 205 mg/dL (70-105); HDL Cholesterol 18 mg/dL (40-59); LDL Cholesterol,Calculated 99 mg/dL (0-99); Magnesium 1.8 mg/dL (1.6-2.6); Osmolality,Calculated 281 (280-300); Phosphorous 2.4 mg/dL (2.7-4.5); Potassium 3.6 mEq/L (3.5-5.1); Sodium 130 mEq/L (136-145); Total Protein 7.5 g/dL (6.4-8.9); Triglycerides 131 mg/dL (< 150); eGFR For African Americans > 60 (> 60); eGFR For Non-African Americans > 60 (> 60)
[2017-06-25] MEDS ORDERED: Acetaminophen 325 MG TABLET PO PRN ×2 (04:10→09:19)
--- NOTE | 2017-06-25 08:16 | Neurology Progress Note ---
Date of Encounter: 06/25/17 Time of Encounter: 08:14 Assessment and Plan (1) Left hand weakness Current Visit: Yes Status: Acute (2) Left arm weakness Current Visit: Yes Status: Acute Patient feels that he has some improved ability to dorsiflex the left wrist. However his neurologic exam still suggests something more than the single peripheral nerve problem. He has weakness of multiple muscles in the left upper extremity and perhaps even some weakness in the left lower extremity. Also has pain in the left shoulder. Differential diagnosis in this case includes right hemispheric cerebral infarct, versus perhaps an inflammatory plexitis on the left. We will obtain an MRI scan of the brain today, further recommendations will be made pending the outcome of the MRI of the head. If it is negative then I anticipate ordering an MRI of the left brachial plexus. Would recommend stroke protocol orders until he is cleared of stroke. Subjective Interval history: Chart reviewed, patient seen and examined. He reports having an uneventful night. Today in fact he feels that he is having some improvement in his ability to dorsiflex the left wrist. However he still complains of some pain in the left shoulder and his examination finds weakness in the left upper extremity which extends beyond any single peripheral nerve root intervention. Objective - Constitutional Vitals: Temp Pulse Resp BP Pulse Ox 99.5 F 112 18 131/86 93 06/25/17 07:22 06/25/17 07:22 06/25/17 07:22 06/25/17 07:22 06/25/17 07:22 - Neurological Exam Sensorimotor examination: Present: intact Motor examination - right side: 5/5: deltoids, biceps, triceps, shot packer, hip flexors, tibialis Anterior, quadriceps, toe extension (EHL), plantarflexion Motor examination - left side: 1/5: wrist flexion, wrist extension, shot packer, 3/5: deltoids, 4/5: biceps, triceps, hip flexors, quadriceps, 5/5: tibialis Anterior , plantarflexion Sensation intact: Present: intact Reflex and gait examination: intact Mental Status Examination: Present: awake, alert, oriented to person, oriented to place, oriented to time, follows commands appropriately, answers questions appropriately, no agnosia, no aphasia Cranial nerve examination: Present: PERRL, EOMI, visual franco intact, corneal reflexes brisk symmetrically, sensory to face intact, mastication intact, no facial asymmetry is present, no dysarthria, hearing is intact symmetrically, soft palate elevates bilaterally upon phonation, gag reflex intact, flexes SCM and trapezius muscles symmetrically with full power, tongue protrudes midline, no atrophy or facial fasiculations present Results - Laboratory Findings CBC and BMP: 06/25/17 01:38 06/25/17 01:38 Abnormal lab findings: Abnormal lab results WBC 17.0 K/mcL (4.3-11.1) H 06/25/17 01:38 Hgb 10.8 g/dL (12.9-16.9) L D 06/25/17 01:38 Hct 33.8 % (37.5-50.1) L 06/25/17 01:38 MCV 77.2 fL (83.0-100.0) L 06/25/17 01:38 MCH 24.7 pg (28.0-33.3) L 06/25/17 01:38 RDW 14.9 % (11.5-14.5) H 06/25/17 01:38 MPV 8.9 fL (9.4-12.4) L 06/25/17 01:38 Neutrophils # 15.5 K/mcL (1.6-8.9) H 06/25/17 01:38 PT 16.1 Seconds (9.4-12.1) H 06/25/17 01:38 D-Dimer 1179 ng/mLFEU (0-500) H 06/24/17 10:23 Sodium 130 mEq/L (136-145) L 06/25/17 01:38 Chloride 94 mEq/L (98-107) L 06/25/17 01:38 BUN 27 mg/dL (6-20) H 06/25/17 01:38 BUN/Creatinine Ratio 29 (6-26) H 06/25/17 01:38 Glucose 205 mg/dL (70-105) H 06/25/17 01:38 POC Glucose 306 (58-89) H 06/24/17 19:32 Calcium 8.5 mg/dL (8.6-10.3) L 06/25/17 01:38 Phosphorus 2.4 mg/dL (2.7-4.5) L 06/25/17 01:38 AST 11 Units/L (13-39) L 06/25/17 01:38 Albumin 3.2 g/dL (3.5-5.7) L 06/25/17 01:38 Globulin 4.3 g/dL (2.4-3.5) H 06/25/17 01:38 Albumin/Globulin Ratio 0.7 (1.1-2.2) L 06/25/17 01:38 HDL Cholesterol 18 mg/dL (40-59) L 06/25/17 01:38 Cholesterol/HDL Ratio 7.9 (0-4.9) H 06/25/17 01:38 Urine Clarity Turbid (Clear) A 06/24/17 11:23 Urine Protein 100 mg/dL (Neg-Trace) H 06/24/17 11:23 Urine Glucose (UA) >=1000 mg/dL (Normal) H 06/24/17 11:23 Urine Ketones 40 mg/dL (Negative) H 06/24/17 11:23 Urine Blood Large (Negative) H 06/24/17 11:23 Urine Bilirubin Small (Negative) H 06/24/17 11:23 Ur Leukocyte Esterase Small (Negative) H 06/24/17 11:23 Urine Microscopic RBC 3-5 per hpf (0-3) H 06/24/17 11:23 Urine Microscopic WBC TNTC per hpf (0-3) H 06/24/17 11:23 Ur Squamous Epith Cells Many per lpf (None-Few) H 06/24/17 11:23 Urine Bacteria Many per hpf (None-Few) H 06/24/17 11:23 Granular Casts Few per lpf (None Seen) H 06/24/17 11:23 Consult Discharge Plan - Plan Referrals: Sally Ortega, DIRECTOR OF CARDIAC CATH LAB [Primary Care Provider] -
[2017-06-25] MEDS ORDERED: Ondansetron 4 MG/2 ML VIAL IVP PRN (08:36)
[2017-06-25] MEDS: *HR* Glimepiride 2 MG TABLET PO SCH (08:59)
--- NOTE | 2017-06-25 09:34 | Internal Med Progress Note ---
Date of Encounter: 06/25/17 Time of Encounter: 09:29 - Assessment and plan (1) Sepsis Current Visit: Yes Status: Acute Assessment and plan: sepsis 2ry to UTI Grew Klebsiella on 06/22/17 continue Levaquin Day 2 may switch to another antibiotic is not improving clinically even though Klebsiella is sensitive to quinolones Start IVF Qualifiers: Sepsis type: sepsis due to unspecified organism Qualified Code(s): A41.9 - Sepsis, unspecified organism (2) UTI (urinary tract infection) Current Visit: Yes Status: Acute Qualifiers: Urinary tract infection type: acute cystitis Hematuria presence: without hematuria Qualified Code(s): N30.00 - Acute cystitis without hematuria (3) Hypertension Current Visit: No Status: Chronic Assessment and plan: stable Qualifiers: Hypertension type: essential hypertension Qualified Code(s): I10 - Essential (primary) hypertension (4) HLD (hyperlipidemia) Current Visit: No Status: Chronic Qualifiers: Hyperlipidemia type: unspecified Qualified Code(s): E78.5 - Hyperlipidemia , unspecified (5) Left arm weakness Current Visit: Yes Status: Acute Assessment and plan: Neurology recommended Brain MRI, may order MRI of cervical MRI (6) Diabetes mellitus Current Visit: Yes Status: Acute Assessment and plan: ISS Qualifiers: Diabetes mellitus type: type 2 Diabetes mellitus complication status: with unspecified complications Diabetes mellitus intermediate card tender insulin use: unspecified intermediate insulin use status Qualified Code(s): E11.8 - Type 2 diabetes mellitus with unspecified complications - Subjective Interval history: The patient is tachycardic, denies any abdominal pain, his left upper extremity remains non-and weak, last fever was on 06/24/2017 and was 100.5. Complains of nausea and vomited once earlier today. No further chest pain - Constitutional Vitals: Temp Pulse Resp BP Pulse Ox 99.5 F 112 18 131/86 93 06/25/17 07:22 06/25/17 07:22 06/25/17 07:22 06/25/17 07:22 06/25/17 07:22 General appearance: Present: A&O X 3 - Head Head exam: Present: atraumatic, normocephalic - Eye Eye exam: Present: PERRL, conjuntiva pink, sclera anicteric Pupils: Present: PERRL - Neck Neck exam general surgery: Present: supple, trachea midline. Absent: lymphadenopathy - Respiratory Respiratory exam: Present: CTAB. Absent: accessory muscle use, rales, rhonchi, wheezes - Cardiovascular Cardiovascular exam: Present: RRR, +S1, +S2, tachycardia. Absent: diastolic murmur, gallop, rubs, systolic murmur - GI/Abdominal GI/Abdominal exam: Present: normal bowel sounds, soft, no peritoneal signs. Absent: distended, tenderness - Extremities Exam Extremities exam: Present: warm, radial pulses palpable and symmetrical. Absent : calf tenderness, cyanotic, pedal edema - Neurological Exam Neurological exam: Present: CN II-XII intact, oriented X3, no focal deficits. Absent: pronater drift, facial droop, speech deficit Additional comments: Left upper extremity weakness and numbness - Skin Skin exam: Present: dry, intact Internal Medicine: Result - Labs CBC & Chem 7: 06/25/17 01:38 06/25/17 01:38 Labs: Short CBC 06/25/17 Range/Units 01:38 WBC 17.0 H (4.3-11.1) K/mcL Hgb 10.8 L D (12.9-16.9) g/dL Hct 33.8 L (37.5-50.1) % Plt Count 281 (140-400) K/mcL Neutrophils # 15.5 H (1.6-8.9) K/mcL BMP 06/25/17 01:38 Sodium 130 L Potassium 3.6 Chloride 94 L Carbon Dioxide 27 BUN 27 H Creatinine 0.93 Glucose 205 H Calcium 8.5 L Cardiac Enzymes 06/24/17 06/25/17 Range/Units 19:50 01:38 Troponin I < 0.03 < 0.03 (< 0.04) ng/mL Liver Function 06/25/17 Range/Units 01:38 Total Bilirubin 0.6 (0.3-1.0) mg/dL AST 11 L (13-39) Units/L ALT 16 (7-52) Units/L Alkaline Phosphatase 50 (34-104) Units/L Albumin 3.2 L (3.5-5.7) g/dL - ABG Interpretation ABG results: PT/INR, D-dimer PT 16.1 Seconds (9.4-12.1) H 06/25/17 01:38 D-Dimer 1179 ng/mLFEU (0-500) H 06/24/17 10:23 Consult Discharge Plan - Plan Referrals: Sally Ortega, ELIZABETH [Primary Care Provider] - 07/03/17 9:00 am
[2017-06-25] MEDS ORDERED: Levofloxacin 750 MG/150 ML 750 MG/150 ML BAG IVPB SCH (10:00)
[2017-06-25] MEDS: 0.9 % Sodium Chloride 1,000 ML IVC SCH ×2 (10:35→20:51)
[2017-06-25] MEDS ORDERED: *HR* Enoxaparin 40 MG/0.4 ML SYRINGE SQ SCH (18:00)
[2017-06-25] MEDS ORDERED: GuaiFENesin Liq 200 MG/10 ML UDC PO PRN (19:32)
[2017-06-25] MEDS: Aspirin Enteric Coated 81 MG Tablet PO SCH (20:53)
[2017-06-26] MEDS: 0.9 % Sodium Chloride 1,000 ML IVC SCH (05:18)
[2017-06-26 05:33] LABS: Hemoglobin 9.8 g/dL (12.9-16.9); Mean Corpuscular HGB Conc 31.6 g/dL (31.6-35.5); Mean Corpuscular Hemoglobin 24.7 pg (28.0-33.3); Mean Corpuscular Volume 78.3 fL (83.0-100.0); Mean Platelet Volume 9.4 fL (9.4-12.4); Platelet Count 279 K/mcL (140-400); Red Blood Count 3.96 M/mcL (4.19-5.50); Red Cell Distribution Width 14.8 % (11.5-14.5)
[2017-06-26 05:45] LABS: BUN/Creatinine Ratio 33 (6-26); Blood Urea Nitrogen 23 mg/dL (6-20); Calcium 8.1 mg/dL (8.6-10.3); Carbon Dioxide 25 mEq/L (23-29); Chloride 99 mEq/L (98-107); Glucose 192 mg/dL (70-105); Osmolality,Calculated 283 (280-300); Potassium 3.6 mEq/L (3.5-5.1); Sodium 132 mEq/L (136-145); eGFR For African Americans > 60 (> 60); eGFR For Non-African Americans > 60 (> 60)
[2017-06-26 07:05] VITALS: BP 124/83
--- NOTE | 2017-06-26 08:43 | Neurology Progress Note ---
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 The extent of his weakness goes beyond any single peripheral nerve intervention. In the element of pain in the left shoulder goes along with the idiopathic brachial plexitis. There is no evidence of acute infarct or cervical spinal stenosis, no evidence of cervical radiculopathy. He is okay to discharge this gentleman home perhaps with a left wrist splint to help maximize his ability to use left hand until it improves. I would also like to follow up with him in my office after discharge to complete an EMG of both upper extremities. He has an extensive amount of wasting of the intrinsic hand muscles on the right as well as some on the left. He is diabetic. I will like to follow up with him in my office as an outpatient to sort out these matters. Subjective Interval history: I had the pleasure of following up with Stefano today for left shoulder pain and left upper extremity weakness. His symptoms are beginning to improve. He had an uneventful night. He is better able to dorsiflex the left wrist and extend the fingers on the left hand. He still has a bit of left shoulder pain. MRI scan of the brain was negative for acute infarct, MRI of the cervical spine was negative for cervical stenosis or cervical radiculopathy. Objective - Constitutional Vitals: Temp Pulse Resp BP Pulse Ox 98.3 F 101 16 124/83 96 06/26/17 07:04 06/26/17 07:04 06/26/17 07:04 06/26/17 07:04 06/26/17 07:04 - Neurological Exam Sensorimotor examination: Present: intact Motor examination - right side: 4/5: chief engineer waterworks (Atrophy of the hand intrinsics present), 5/5: deltoids, biceps, triceps, wrist flexion Motor examination - left side: 1/5: wrist flexion, wrist extension, chief engineer waterworks ( Atrophy of the hand intrinsics present), 3/5: deltoids, 4/5: biceps, triceps, hip flexors, quadriceps, 5/5: tibialis Anterior, plantarflexion Sensation intact: Present: intact Reflex and gait examination: intact Mental Status Examination: Present: awake, alert, oriented to person, oriented to place, oriented to time, follows commands appropriately, answers questions appropriately, no agnosia, no aphasia Cranial nerve examination: Present: PERRL, EOMI, visual franco intact, corneal reflexes brisk symmetrically, sensory to face intact, mastication intact, no facial asymmetry is present, no dysarthria, hearing is intact symmetrically, soft palate elevates bilaterally upon phonation, gag reflex intact, flexes SCM and trapezius muscles symmetrically with full power, tongue protrudes midline, no atrophy or facial fasiculations present - VTE Documentation of Mechanical Device: Intermittent pneumatic compression device Results - Laboratory Findings CBC and BMP: 06/26/17 04:32 06/26/17 04:32 Abnormal lab findings: Abnormal lab results WBC 12.7 K/mcL (4.3-11.1) H 06/26/17 04:32 RBC 3.96 M/mcL (4.19-5.50) L 06/26/17 04:32 Hgb 9.8 g/dL (12.9-16.9) L 06/26/17 04:32 Hct 31.0 % (37.5-50.1) L 06/26/17 04:32 MCV 78.3 fL (83.0-100.0) L 06/26/17 04:32 MCH 24.7 pg (28.0-33.3) L 06/26/17 04:32 RDW 14.8 % (11.5-14.5) H 06/26/17 04:32 Neutrophils # 15.5 K/mcL (1.6-8.9) H 06/25/17 01:38 PT 16.1 Seconds (9.4-12.1) H 06/25/17 01:38 D-Dimer 1179 ng/mLFEU (0-500) H 06/24/17 10:23 Sodium 132 mEq/L (136-145) L 06/26/17 04:32 BUN 23 mg/dL (6-20) H 06/26/17 04:32 BUN/Creatinine Ratio 33 (6-26) H 06/26/17 04:32 Glucose 192 mg/dL (70-105) H 06/26/17 04:32 POC Glucose 182 (58-89) H 06/25/17 16:08 Calcium 8.1 mg/dL (8.6-10.3) L 06/26/17 04:32 Phosphorus 2.4 mg/dL (2.7-4.5) L 06/25/17 01:38 AST 11 Units/L (13-39) L 06/25/17 01:38 Albumin 3.2 g/dL (3.5-5.7) L 06/25/17 01:38 Globulin 4.3 g/dL (2.4-3.5) H 06/25/17 01:38 Albumin/Globulin Ratio 0.7 (1.1-2.2) L 06/25/17 01:38 HDL Cholesterol 18 mg/dL (40-59) L 06/25/17 01:38 Cholesterol/HDL Ratio 7.9 (0-4.9) H 06/25/17 01:38 Urine Clarity Turbid (Clear) A 06/24/17 11:23 Urine Protein 100 mg/dL (Neg-Trace) H 06/24/17 11:23 Urine Glucose (UA) >=1000 mg/dL (Normal) H 06/24/17 11:23 Urine Ketones 40 mg/dL (Negative) H 06/24/17 11:23 Urine Blood Large (Negative) H 06/24/17 11:23 Urine Bilirubin Small (Negative) H 06/24/17 11:23 Ur Leukocyte Esterase Small (Negative) H 06/24/17 11:23 Urine Microscopic RBC 3-5 per hpf (0-3) H 06/24/17 11:23 Urine Microscopic WBC TNTC per hpf (0-3) H 06/24/17 11:23 Ur Squamous Epith Cells Many per lpf (None-Few) H 06/24/17 11:23 Urine Bacteria Many per hpf (None-Few) H 06/24/17 11:23 Granular Casts Few per lpf (None Seen) H 06/24/17 11:23 Consult Discharge Plan - Plan Referrals: Sally Ortega, MUSIC AGENT [Primary Care Provider] - 07/03/17 9:00 am
[2017-06-26] MEDS: *HR* Glimepiride 2 MG TABLET PO SCH (08:51)
[2017-06-26] MEDS: Insulin LISPRO 300 UNITS/3 ML VIAL SQ SCH (08:52)
--- NOTE | 2017-06-26 08:57 | Discharge Summary ---
Date of Encounter: 06/26/17 Time of Encounter: 08:54 - Discharge Diagnosis (1) Sepsis Priority: Primary Status: Acute Comments: sepsis 2ry to UTI Grew Klebsiella on 06/22/17 continue Levaquin Day 3 Qualifiers: Sepsis type: sepsis due to unspecified organism Qualified Code(s): A41.9 - Sepsis, unspecified organism (2) UTI (urinary tract infection) Priority: Primary Status: Acute Qualifiers: Urinary tract infection type: acute cystitis Hematuria presence: without hematuria Qualified Code(s): N30.00 - Acute cystitis without hematuria (3) Hypertension Priority: Secondary Status: Chronic Qualifiers: Hypertension type: essential hypertension Qualified Code(s): I10 - Essential (primary) hypertension (4) HLD (hyperlipidemia) Priority: Secondary Status: Chronic Qualifiers: Hyperlipidemia type: unspecified Qualified Code(s): E78.5 - Hyperlipidemia , unspecified (5) Left arm weakness Priority: Secondary Status: Acute Comments: Possible idiopathic left Brachial plexitis according to neurology (6) Diabetes mellitus Priority: Secondary Status: Acute Qualifiers: Diabetes mellitus type: type 2 Diabetes mellitus complication status: with unspecified complications 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 insulin use: unspecified senior care insulin use status Qualified Code(s): E11.8 - Type 2 diabetes mellitus with unspecified complications - Discharge Medications Prescriptions: levoFLOXacin [Levaquin] 750 mg PO DAILY 5 Days #5 tablet Home Medications: Aspirin Enteric Coated [Aspirin EC] 81 mg PO HS 08/23/16 [History] Metformin HCl [Glucophage] 1,000 mg PO BID #60 tablet 01/21/17 [Rx] Nitroglycerin 0.4 mg SL Q5MIN PRN #60 01/21/17 [Rx] Glimepiride [Amaryl] 2 mg PO DAILY 06/24/17 [History] levoFLOXacin [Levaquin] 750 mg PO DAILY 5 Days #5 tablet 06/26/17 [Rx] Allergies/Adverse Reactions: 3 Allergy/AdvReac Type Severity Reaction Status Date / Time No Known Allergies Allergy Verified 01/20/17 08:59 Procedures/tests Complete & Pending: Procedures Performed prior 72 hours Category Date Time Status MR cervical spine wo con [MR] Routine MRI 06/25/17 09:21 Completed MR head/brain wo con [MR] Routine MRI 06/25/17 09:20 Completed Date of admission: 06/24/17 13:53 Primary care physician: Sally Ortega CNP - Patient Status Disposition: Home, Self-Care Condition: Good Overall status at discharge: patient is progressing back to baseline - Discharge Instructions Follow Up With: Sally Ortega CNP [Primary Care Provider] - 07/03/17 9:00 am Additional Instructions: Follow-up with primary care physician within the next 7 days. Continue Levaquin. Follow up with neurology within the next 2 weeks for possible EMG - Diet and Activity Activity: increase activity as tolerated Diet: diabetic diet Hospital course: Mr. Ortega is a 47 year old male with a past medical history of diabetes type 2 not insulin-dependent, hypertension, hyperlipidemia, CAD, woke up on the morning of admission and noted excruciating chest pain which was retrosternal in nature, nonradiating, localized, associated with the movement, getting worse with the walking and lifting heavy material and relieved by rest and nitroglycerin. Patient also complained of left sided wrist/arm weakness CT scan of the head did not show any abnormality. CT scan of the C-spine did not show any fracture or listhesis. Echocardiogram showed an ejection fraction of 70% and mild diastolic dysfunction. He was diagnosed with a UTI, grew Klebsiella that was sensitive to quinolones. Was kept on Levaquin. White blood cell count has come down to 12.7 from the initial value of 18.2. The patient was evaluated by neurology due to left upper extremity weakness. MRI of the brain did not show any infarcts, MRI of the day cervical spine showed mild to moderate stenoses in C3- C4 and between C5 and C6. Neurology recommending follow-up as an outpatient due to possible left idiopathic brachial plexitis. The patient is stable to be discharged. - Time Spent with Patient Total time spent providing and/or coordinating discharge services: Greater than 30 minutes (40 min) - Constitutional Vitals: Temp Pulse Resp BP Pulse Ox 98.3 F 101 16 124/83 96 06/26/17 07:04 06/26/17 07:04 06/26/17 07:04 06/26/17 07:04 06/26/17 07:04 General appearance: Present: A&O X 3 - Head Head exam: Present: atraumatic, normocephalic - Eye Eye exam: Present: PERRL, conjuntiva pink, sclera anicteric Pupils: Present: PERRL - Neck Neck exam general surgery: Present: supple, trachea midline. Absent: lymphadenopathy - Respiratory Respiratory exam: Present: CTAB. Absent: accessory muscle use, rales, rhonchi, wheezes - Cardiovascular Cardiovascular exam: Present: RRR, +S1, +S2. Absent: diastolic murmur, gallop, rubs, systolic murmur - GI/Abdominal GI/Abdominal exam: Present: normal bowel sounds, soft, no peritoneal signs. Absent: distended, tenderness - Extremities Exam Extremities exam: Present: warm, radial pulses palpable and symmetrical. Absent : calf tenderness, cyanotic, pedal edema - Neurological Exam Neurological exam: Present: CN II-XII intact, oriented X3, no focal deficits. Absent: pronater drift, facial droop, speech deficit Additional comments: Minimal left upper extremity weakness - Skin Skin exam: Present: dry, intact - VTE Documentation of Mechanical Device: Intermittent pneumatic compression device
[2017-06-26] MEDS ORDERED: levoFLOXacin 750 MG TABLET PO SCH (09:00)
== END 2017-06-26 10:14 | disposition home or self-care (01) | DRG 872 ==
LOC: EMEROO 10:06 → 3BNU 10:06 → SUATTDRO 13:52 → 3BNU 14:34
PROVIDERS: ADMIT Hospitalist; ATTEND Internal Medicine